=== PATIENT | female | born 1940 | race Caucasian/White ===

== ENCOUNTER 2017-08-17 20:28 | Inpatient (IN) ==
[2017-08-17] MEDS ORDERED: ONDANSETRON 4 MG/2 ML VIAL IV ONE (20:41)
[2017-08-17] MEDS ORDERED: 0.9 % SODIUM CHLORIDE 1,000 ML IV ONE (20:55)
[2017-08-17] MEDS ORDERED: DILTIAZEM 25 MG/5 ML VIAL IV ONE (20:59)
[2017-08-17 21:44] LABS: Basophils # (Auto) 0 K/mcL (0.0-0.3); Basophils % (Auto) 0 % (0.0-2.0); Eosinophils # (Auto) 0 K/mcL (0.0-0.7); Eosinophils % (Auto) 0.2 % (0.0-7.0); Granulocytes % (Auto) 85.9 % (38.0-78.0); Lymphocytes # (Auto) 0.5 K/mcL (1.5-4.8); Lymphocytes % (Auto) 7.6 % (15.5-49.0); Mean Cell Volume 80.9 fL (80.0-100.0); Mean Corpuscular HGB Conc 32.3 g/dL (31.0-36.0); Mean Corpuscular Hemoglobin 26.1 pg (26.0-34.0); Monocytes # (Auto) 0.4 K/mcL (0.1-0.9); Monocytes % (Auto) 6.3 % (1.0-12.0); Platelet Count 282 K/mcL (140-440); RBC 3.16 M/mcL (4.00-5.20); Red Cell Distribution Width 19.1 % (11.5-14.5)
[2017-08-17 21:47] LABS: ALT/SGPT 21 U/l (0-40); Albumin 3.3 gm/dL (3.2-5.2); Alkaline Phosphatase 126 U/L (39-117); Blood Urea Nitrogen 22 mg/dl (8-23)
[2017-08-17] MEDS ORDERED: PHYTONADIONE 5 MG in 0.9 % SODIUM CHLORIDE 50 ML IV ONE (21:52)
[2017-08-17] MEDS ORDERED: PHYTONADIONE 10 MG/ML AMPUL ONE (22:21)
[2017-08-17] MEDS ORDERED: 0.9 % SODIUM CHLORIDE 100 ML IV ONE (22:25)
[2017-08-17] MEDS ORDERED: PANTOPRAZOLE 40 MG VIAL IV ONE (23:00)
--- NOTE | 2017-08-17 23:06 | Emergency Department Note ---
Nausea/Vomiting/Diarrhea HPI - General Chief complaint: Nausea/Vomiting/Diarrhea Stated complaint: nausea,vomiting,diarrhea Time Seen by Provider: 08/17/17 22:48 Source: patient Mode of arrival: wheelchair Limitations: no limitations - History of Present Illness HPI Narrative: Nausea for the last 2 days, decreased by mouth intake, tells me that she vomited some coffee-ground material this morning, she was brought in by a neighbor because she did not feel well. Unable to eat very much today, she felt like she was getting dehydrated she also felt palpitations but denies any chest pain. She felt a little bit short of breath but then her oxygen saturations were normal when she arrived here. No recent cough which is productive for, she denies any ankle swelling she has chronic A. fib but when she arrived here her rate was 140-150. She has diffuse abdominal pain associated with nausea and she had several loose stools today. One of the stool she does describe it as being brown or dark in color. She takes Coumadin for atrial fibrillation which she has had for many years. MD complaint: nausea - Related Data Home Medications Medication Instructions Recorded Confirmed lipase 40,000-protease 1 cap PO TID 02/06/17 07/11/17 136,000-amylase 218,000 unit capsule,delay rel omeprazole 20 mg capsule,delayed 20 mg PO QDAY cap 02/06/17 07/11/17 release warfarin 3 mg tablet 3 mg PO QDAY tab 02/06/17 07/11/17 Previous Rx's Medication Instructions Recorded levothyroxine 75 mcg tablet 75 mcg PO DAILY #90 tab 01/11/16 clobetasol 0.05 % topical ointment 1 applic TOPICAL BID PRN #60 g 05/18/16 furosemide 20 mg tablet 20 mg PO QDAY #30 tab 02/21/17 tramadol 50 mg tablet 50 mg PO Q8H PRN 30 Days #90 tab 04/24/17 hydrocodone 5 mg-acetaminophen 325 1 tab PO Q4HP PRN #12 tab 07/18/17 mg tablet HYDROcodone/APAP 5/325MG [[place] 1 tab PO Q6HP PRN #30 tab 08/03/17 5/325Mg] methocarbamol 500 mg tablet 500 mg PO QDAY PRN #30 tab 08/16/17 Allergies Allergy/AdvReac Type Severity Reaction Status Date / Time Tetracycline Allergy Intermediate Itching Verified 07/11/17 14:55 shellfish derived Allergy Unknown Verified 07/11/17 14:55 Review of Systems All systems ED: reviewed and negative except as stated. Constitutional: Denies: fever, chills Eyes: Reports: as per HPI ENT ED: Denies: throat pain Cardiovascular: Reports: palpitations, dyspnea on exertion Respiratory: Reports: shortness of breath. Denies: cough Gastrointestinal: Reports: abdominal pain, nausea, vomiting, diarrhea, hematochezia Genitourinary: Denies: dysuria Musculoskeletal: Reports: back pain Neurological: Reports: weakness. Denies: headache Past Medical History - Past Medical History Source: old records reviewed, nursing notes reviewed Medical history: Reports: arthritis, atrial fibrillation, COPD, coronary artery disease, hyperlipidemia, liver disease, thyroid disease, other (pancreatitis, low back pain, alcoholic hepatitis, hemorrhoids, DDD, jaw fracture) Psychiatric history: Reports: no psych history Surgical history ED: Reports: cataract, herniorrhaphy, hip replacement, orthopedic, other (Ankle), other (varicose vein stripping, tonsillectomy/ adenoidectomy) Family history: Reports: non-contributory - Social History smoking status: Current every day smoker Alcohol use: Reports: Frequently, Recent Drug use: Reports: none Physical Exam Limitations: no limitations General appearance: alert Head: atraumatic, normocephalic Eye: Present: normal appearance, PERRL, EOMI, scleral icterus, conjunctival injection ENT: normal exam, normal oropharynx, mucous membranes moist, TM's normal bilaterally Neck: Present: normal inspection, full ROM, trachea midline Chest: Present: normal inspection, symmetric chest wall rise. Absent: tenderness Respiratory: Present: normal lung sounds bilaterally. Absent: respiratory distress, wheezes, stridor Cardiovascular: Present: tachycardia, irregular rhythm, normal heart sounds Abdominal: Present: soft, distention, diminished bowel sounds, organomegaly. Absent: tenderness, guarding Rectal: Present: decreased rectal tone, heme (+) stool, black stool Extremities: Present: normal inspection, full ROM. Absent: tenderness Back: Present: normal inspection, full ROM, paraspinal tenderness, spinous process tenderness, vertebral tenderness Neurological: Present: alert, oriented X3, CN II-XII intact. Absent: motor sensory deficit Psychiatric: Present: normal affect Skin: Present: warm, dry, intact, cyanosis, pallor Course Vital Signs Temperature 97.4 F 08/17/17 20:29 Pulse Rate 150 H 08/17/17 20:29 Respiratory Rate 19 08/17/17 20:29 Blood Pressure 111/80 08/17/17 20:29 Pulse Oximetry (%) 95 08/17/17 20:29 Temperature 97.4 F 08/17/17 20:29 Pulse Rate 110 H 08/17/17 22:01 Respiratory Rate 14 08/17/17 22:01 Blood Pressure 99/63 08/17/17 22:01 Pulse Oximetry (%) 95 08/17/17 22:01 Nausea/Vomiting/Diarrhea - [facility] Narrative Medical decision making narrative: impression GI bleed with high INR. Atrial fibrillation with rapid ventricular rate. Dr. Carina pitts as well as Dr. Ko. - Lab Data Result diagrams: 08/17/17 20:48 08/17/17 20:48 Lab Results 08/17/17 08/17/17 08/17/17 Range/Units 20:48 20:48 20:48 WBC 6.9 (4.5-11.0) K/mcL RBC 3.16 L (4.00-5.20) M/mcL Hgb 8.2 L (12.0-15.0) g/dL Hct 25.5 L (36.0-48.0) % MCV 80.9 (80.0-100.0) fL MCH 26.1 (26.0-34.0) pg MCHC 32.3 (31.0-36.0) g/dL RDW 19.1 H (11.5-14.5) % Plt Count 282 (140-440) K/mcL MPV 8.2 (7.4-10.4) fL Gran % 85.9 H (38.0-78.0) % Lymph % (Auto) 7.6 L (15.5-49.0) % [place] % (Auto) 6.3 (1.0-12.0) % Eos % (Auto) 0.2 (0.0-7.0) % Baso % (Auto) 0 (0.0-2.0) % Gran # 5.9 (1.8-8.0) K/mcL Lymph # (Auto) 0.5 L (1.5-4.8) K/mcL [place] # (Auto) 0.4 (0.1-0.9) K/mcL Eos # (Auto) 0 (0.0-0.7) K/mcL Baso # (Auto) 0 (0.0-0.3) K/mcL PT 79.0 H (11.9-14.5) sec INR 9.2 H* (0.9-1.1) Sodium 131 L (133-145) mmol/L Potassium 4.8 (3.3-5.1) mmol/L Chloride 91 L (96-108) mmol/L Carbon Dioxide 17 L (22-30) mmol/L Anion Gap 23.0 H (8-16) BUN 22 (8-23) mg/dl Creatinine 1.3 H (0.6-1.1) mg/dl GFR Calculation 39 Glucose 148 H (70-105) mg/dL Calcium 9.2 (8.6-10.4) mg/dl Total Bilirubin 1.2 H (0.0-1.0) mg/dL AST 66 H (0-37) U/l ALT 21 (0-40) U/l Alkaline Phosphatase 126 H (39-117) U/L Total Creatine Kinase (24-170) IU/L CK-MB (CK-2) (0-2.9) ng/ml Myoglobin (25-58) ng/ml Troponin T (0-0.03) ng/ml Total Protein 6.6 (5.9-8.4) gm/dL Albumin 3.3 (3.2-5.2) gm/dL Globulin 3.3 (2.2-3.7) gm/dL Albumin/Globulin Ratio 1.0 (1.0-2.3) 08/17/17 08/17/17 Range/Units 20:48 20:48 WBC (4.5-11.0) K/mcL RBC (4.00-5.20) M/mcL Hgb (12.0-15.0) g/dL Hct (36.0-48.0) % MCV (80.0-100.0) fL MCH (26.0-34.0) pg MCHC (31.0-36.0) g/dL RDW (11.5-14.5) % Plt Count (140-440) K/mcL MPV (7.4-10.4) fL Gran % (38.0-78.0) % Lymph % (Auto) (15.5-49.0) % [place] % (Auto) (1.0-12.0) % Eos % (Auto) (0.0-7.0) % Baso % (Auto) (0.0-2.0) % Gran # (1.8-8.0) K/mcL Lymph # (Auto) (1.5-4.8) K/mcL [place] # (Auto) (0.1-0.9) K/mcL Eos # (Auto) (0.0-0.7) K/mcL Baso # (Auto) (0.0-0.3) K/mcL PT (11.9-14.5) sec INR (0.9-1.1) Sodium (133-145) mmol/L Potassium (3.3-5.1) mmol/L Chloride (96-108) mmol/L Carbon Dioxide (22-30) mmol/L Anion Gap (8-16) BUN (8-23) mg/dl Creatinine (0.6-1.1) mg/dl GFR Calculation Glucose (70-105) mg/dL Calcium (8.6-10.4) mg/dl Total Bilirubin (0.0-1.0) mg/dL AST (0-37) U/l ALT (0-40) U/l Alkaline Phosphatase (39-117) U/L Total Creatine Kinase 70 (24-170) IU/L CK-MB (CK-2) 3.0 H (0-2.9) ng/ml Myoglobin 54 (25-58) ng/ml Troponin T < 0.01 (0-0.03) ng/ml Total Protein (5.9-8.4) gm/dL Albumin (3.2-5.2) gm/dL Globulin (2.2-3.7) gm/dL Albumin/Globulin Ratio (1.0-2.3) Disposition Pt seen by NURSING ASSOCIATE/PA only: No Clinical Impression: GI bleed, Dehydration Disposition: Xfer As Inpt ([facility]) Condition: Critical Referrals: Rom Cosme MD [Primary Care Provider] -
[2017-08-18] MEDS ORDERED: OCTREOTIDE ACETATE 50 MCG/ML AMPUL IV ONE (00:11)
[2017-08-18] MEDS ORDERED: THIAMINE 100 MG in 0.9 % SODIUM CHLORIDE 50 ML IV SCH (00:11)
[2017-08-18] MEDS ORDERED: OCTREOTIDE ACETATE 500 MCG in 0.9 % SODIUM CHLORIDE 495 ML IV SCH (00:11)
[2017-08-18] MEDS ORDERED: ONDANSETRON 4 MG/2 ML VIAL IV PRN (00:11)
[2017-08-18] MEDS ORDERED: cefTRIAXone 1 GM in DEXTROSE 5% IN WATER 50 ML IV SCH (00:11)
[2017-08-18] MEDS ORDERED: 0.9 % SODIUM CHLORIDE 1,000 ML IV ONE (00:11)
[2017-08-18] MEDS ORDERED: PHYTONADIONE 5 MG in 0.9 % SODIUM CHLORIDE 50 ML IV ONE (00:11)
[2017-08-18] MEDS ORDERED: NALOXONE HCL 0.4 MG/ML VIAL IV PRN (00:11)
[2017-08-18] MEDS ORDERED: OCTREOTIDE ACETATE IV ONE (00:30)
[2017-08-18] MEDS ORDERED: SODIUM CHLORIDE 0.9% IV ONE (00:30)
--- NOTE | 2017-08-18 00:33 | Internal Med History&Physical ---
Medical - H&P: HPI Patient information: Note initiated : 08/18/17 at 12:29 am Service Date, if different from initiated Date: [] Patient: Diane Xie 77 y/o F admitted on 08/18/17 for nausea,vomiting, diarrhea. Chief Complaint: [] History of present illness: Ms. Xie is a 77 year old Female with h/o alcohol abuse, alcoholic cirrhosis , ? h/o UGI in the past, presents to the hospital for not feeling well x 2 days , The patient notes she has been dry heaving x 2-3 days, not able to tolerate po diet well. She notes that today she tried to vomit and the vomit was very dark, black in color, this am she also had black tarry stools. Her neighbor therefore brought her to the hospital for further evaluation and management. The patient has h/o fall recently and has back pain from a wedge fracture, She notes she has dizziness, and dryness of mouth, some shortness of breath and fatigue today, she denies any acute or bright red blood in the stools, no blood in vomitus, she denies any acute abdominal pain. The patient is a heavy alcohol consumer, has multiple EGD in the past, last There are no esophageal varices. There is a large abnormality in the antrum with edema, likely an ulcer. This was biopsied. The pyloric ring and duodenum were normal. The patient also has had 3 EGD in the past 2 -3 yrs showing gastritis, scaztki ring as well as angiodysplasia of stomach. No varices seen on the last EGD, however MRI abdomen done this year shows some varices She has had a colonoscopy showing hemorrhoids and hyperplastic polyp in 2014. She follows with Dr Queen/ Nilsa Hair for her cirrhosis, chr pancreatitis. The patient has h/o Afib, on coumadin followed by Dr Weaver In the ER the patient was tachycardic, with afib in rvr with HR of 150, the patient had Hb of 8.2, Na 131, creat 1.2, BUN 22 (baseline bun is 7-8), INR is 9 Patient is being admitted to the PCU for further management. Dr Ko has been called by ER All systems: reviewed and no additional remarkable complaints except as stated ( as per HPI) Medical - H&P: PMH Medical history: Medical History (Last Updated 07/05/17 @ 11:18 by Lynnette Nelson CMA) Contusion of right hip region (Acute) Fall (Acute) Compression fracture (Acute) GI bleed (Acute) Dehydration (Acute) Contusion (Acute) Osteoarthritis (Acute) Shoulder sprain (Acute) Chronic lumbar radiculopathy (Chronic) Cervical paraspinal muscle spasm (Acute) Anticoagulated on Coumadin (Chronic) Muscle cramps (Acute) Hypokalemia (Acute) Hypomagnesemia (Acute) Varicose veins of lower extremity (Chronic 12/09/14) History of tobacco use (Chronic) Pancreatitis (Chronic) Osteoporosis (Chronic) Osteoarthritis of spine (Chronic) Disturbance of skin sensation (Chronic 11/05/14) Low back pain (Chronic 11/05/14) Hypothyroidism, acquired (Chronic) Hyperlipidemia (Chronic) Hepatitis, alcoholic (Chronic) Hemorrhoids (Chronic 11/05/14) Closed fracture of multiple sites of mandible (Chronic) Other specified disorders of eye and adnexa (Chronic) Esophagus disorder (Chronic) Degenerative disc disease (Chronic) Coronary artery disease (Chronic) Personal history of colonic polyps (Chronic) Liver cirrhosis, alcoholic (Chronic) COPD (chronic obstructive pulmonary disease) (Chronic) Cerebrovascular accident (CVA) (Chronic) Atrial fibrillation (Chronic) Fracture of ankle, closed (Chronic) Alcohol dependence in remission (Chronic) A-fib (Inactive) Surgical history: Past Surgical History History of varicose vein stripping (Chronic) History of total hip arthroplasty (Chronic 12/03/13) History of tonsillectomy (Chronic) History of oral surgery (Chronic) History of hernia repair (Chronic) History of cataract surgery (Chronic) History of adenoidectomy (Chronic) Pertinent family history: Family History Father Atherosclerosis of coronary artery, Onset Age: 69 Mother Dementia Unknown Family history of malignant neoplasm Unknown Essential hypertension Medical - H&P: Meds Home Medications Medication Instructions Recorded Confirmed Type levothyroxine 75 mcg tablet 75 mcg PO DAILY #90 tab 01/11/16 07/11/17 Rx clobetasol 0.05 % topical ointment 1 applic TOPICAL BID PRN #60 g 05/18/1607/11 Rx lipase 40,000-protease 1 cap PO TID 02/06/17 07/11/17 History 136,000-amylase 218,000 unit capsule,delay rel omeprazole 20 mg capsule,delayed 20 mg PO QDAY cap 02/06/17 07/11/17 History release warfarin 3 mg tablet 3 mg PO QDAY tab 02/06/17 07/11/17 History furosemide 20 mg tablet 20 mg PO QDAY #30 tab 02/21/17 07/11/17 Rx tramadol 50 mg tablet 50 mg PO Q8H PRN 30 Days #90 tab 04/24/17 07/11/17 Rx hydrocodone 5 mg-acetaminophen 325 1 tab PO Q4HP PRN #12 tab 07/18/17 Rx mg tablet HYDROcodone/APAP 5/325MG [[place] 1 tab PO Q6HP PRN #30 tab 08/03/17 Rx 5/325Mg] methocarbamol 500 mg tablet 500 mg PO QDAY PRN #30 tab 08/16/17 Rx Allergies Allergy/AdvReac Type Severity Reaction Status Date / Time Tetracycline Allergy Intermediate Itching Verified 07/11/17 14:55 shellfish derived Allergy Unknown Verified 07/11/17 14:55 Medical - H&P: Exam - Constitutional Vitals: Temp Pulse Resp BP Pulse Ox 97.4 F 138 H 14 109/58 93 08/17/17 20:29 08/18/17 00:01 08/18/17 00:01 08/18/17 00:01 08/18/17 00:01 Exam: GENERAL: The patient is a well-developed, well-nourished in no apparent distress. Is alert and oriented x3. VITAL SIGNS: Reviewed and as noted elsewhere. HEENT: Head is normocephalic and atraumatic. Extraocular muscles are intact. Pupils are equal, round, and reactive to light. Nares appeared normal. Mouth appears any without lesions. Mucous membranes are dry. NECK: Normal to inspection, Supple, No lymphadenopathy or thyromegaly. LUNGS: Air entry equal on both sides, no wheezing, crackles or rhonchi noted. No accessory muscles of respiration HEART: tachycardic rate and rhythm irregular , S1 and S2 heard, no Gallop, S3 or Rub Noted, No Gross murmur heard. ABDOMEN: Soft, nontender, and nondistended. Positive bowel sounds. No hepatosplenomegaly was noted. EXTREMITIES: No cyanosis, clubbing, rash, lesions or edema. NEUROLOGIC: Cranial nerves II through XII are grossly intact. Motor and Sensory System Grossly Intact, no astrexis, PSYCHIATRIC: Normal affect, Normal Mood. Appropriate Behavior. SKIN: No ulceration or wounds noted, No jaundice, No rash noted. Medical - H&P: Reslt - Labs CBC & Chem 7: 08/17/17 20:48 08/17/17 20:48 Labs: Short CBC 08/17/17 Range/Units 20:48 WBC 6.9 (4.5-11.0) K/mcL Hgb 8.2 L (12.0-15.0) g/dL Hct 25.5 L (36.0-48.0) % Plt Count 282 (140-440) K/mcL BMP 08/17/17 20:48 Sodium 131 L Potassium 4.8 Chloride 91 L Carbon Dioxide 17 L BUN 22 Creatinine 1.3 H Glucose 148 H Calcium 9.2 Cardiac Enzymes 08/17/17 08/17/17 Range/Units 20:48 20:48 Total Creatine Kinase 70 (24-170) IU/L CK-MB (CK-2) 3.0 H (0-2.9) ng/ml Troponin T < 0.01 (0-0.03) ng/ml Liver Function 08/17/17 Range/Units 20:48 Total Bilirubin 1.2 H (0.0-1.0) mg/dL AST 66 H (0-37) U/l ALT 21 (0-40) U/l Alkaline Phosphatase 126 H (39-117) U/L Albumin 3.3 (3.2-5.2) gm/dL - EKG Data -: EKG Reviewed by Myself (afib with RVR, low voltage, non spec ST changes in ant lateral leads. ) Medical - H&P: A/P - Narrative A/P Narrative: A/P Acute GI bleed: patient has cassie, and black/ dark vomitus, BUN is elevated from baseline to 22, the patient is tachcardic from afib with RVR, but has afib at baseline, bp is stable, though dropped after IV cardizem in ER, GI has been consulted. IV PPI 40mg bid, start on octreotide drip, 2 units prbc and 2 units ffp, 5mg iv vit K given in the Er. Hypercoagulation: on coumadin for afib, INR elevated in patient with GIB, INR 9 , IV vit k given in ER, 2 units ffp planned to rapidly reverse anticoagulation. Anemia: patient hb is 8.2 on presentation, which is lower than her previous labs , but she has had varied hb over the last 2 years. Transfuse given pt is tachcyardic, and clinical h/o suggestive of GIB, monitor closely. Afib with RVR: For now hold off on rate control meds, once hb is improved and patient is volume resusitated can use IV metoprolol prn if HR remains elevated. COPD: still smokes, duonebs q6 for now, no wheezing on exam chr pancreatitis: will need digestive enzymes once able to tolerate PO, resume home meds Cirrhosis: alcoholic, ? hepatic mass? repeat mri in 6 months planned, patient still drinks, MELD score cannot be calculated as she is on coumadin. CAD/ Hypothyroidism/ CVA? : Resume home meds Alcoholism: CIWA protocol while here, IV thiamine for now. DVT SCD Full code NPO diet. Ok for ice chips Social History - Tobacco smoking status: Current every day smoker - Tobacco Type tobacco type: e-cigarettes, cigarettes - Cigarette Details per day: 10 - Alcohol alcohol intake frequency: a few times a week - Substance use substance use type: does not use
[2017-08-18] MEDS ORDERED: LORazepam 2 MG/ML VIAL IV PRN (00:49)
[2017-08-18] MEDS ORDERED: METOPROLOL TARTRATE 5 MG/5 ML VIAL IV PRN (00:50)
[2017-08-18] MEDS: IPRATROPIUM/ALBUTEROL 3 ML AMPUL.NEB NEB SCH ×4 (01:03→19:26)
[2017-08-18] MEDS ORDERED: IPRATROPIUM/ALBUTEROL 3 ML AMPUL.NEB NEB ONE (01:10)
[2017-08-18] MEDS ORDERED: cefTRIAXone 1 GM VIAL ONE (01:17)
[2017-08-18] MEDS ORDERED: 0.9 % SODIUM CHLORIDE 100 ML IV ONE (01:17)
[2017-08-18] MEDS ORDERED: METOPROLOL TARTRATE 5 MG/5 ML VIAL IV ONE (02:02)
[2017-08-18] MEDS: HYDROmorphone 2 MG/ML SYRINGE IV PRN ×2 (02:03→22:39)
[2017-08-18] MEDS ORDERED: HYDROmorphone 2 MG/ML SYRINGE ONE (02:09)
[2017-08-18] MEDS ORDERED: METHOCARBAMOL 1,000 MG/10 ML VIAL ONE (03:44)
--- NOTE | 2017-08-18 06:14 | XRay Report ---
INDICATION: Atrial fibrillation TECHNIQUE: AP chest x-ray,portable COMPARISON: Multiple previous examinations. Most recent comparison study is dated 10/12/2016 FINDINGS:Mild left lower lobe density consistent with atelectasis or small focal infiltrate. Lungs are otherwise negative Mild cardiomegaly. Pulmonary vascularity is normal. No pulmonary congestion. No pulmonary edema. IMPRESSION: 1. Marked cardiomegaly. No congestive heart failure. 2. Mild left retrocardiac density. Interpreted and Authenticated by: Abhijeet Frost 08/18/17
[2017-08-18] MEDS: 0.9 % SODIUM CHLORIDE 10 ML SYRINGE IV SCH ×3 (07:27→22:39)
[2017-08-18] MEDS: PANTOPRAZOLE 40 MG VIAL IV SCH ×2 (07:27→17:28)
[2017-08-18] MEDS: METHOCARBAMOL 1,000 MG/10 ML VIAL IV PRN ×2 (08:18→19:21)
[2017-08-18] MEDS ORDERED: DIGOXIN 500 MCG/2 ML AMPUL IV ONE (08:28)
[2017-08-18] MEDS ORDERED: KETAMINE 10 MG/ML ML IV PRN (08:37)
[2017-08-18] MEDS ORDERED: PROPOFOL 200 MG/20 ML VIAL IV SCH (08:45)
[2017-08-18] MEDS ORDERED: MIDAZOLAM 2 MG/2 ML VIAL IV SCH (08:45)
[2017-08-18] MEDS ORDERED: MIDAZOLAM 2 MG/2 ML VIAL ONE (08:55)
[2017-08-18] MEDS ORDERED: PROPOFOL 20 ML IV ONE (08:55)
[2017-08-18 09:15] LABS: ALT/SGPT 17 U/l (0-40); Albumin/Globulin Ratio 1.2 (1.0-2.3); Alkaline Phosphatase 90 U/L (39-117); Bilirubin,Direct 0.5 mg/dL (0.0-0.3); Blood Urea Nitrogen 23 mg/dl (8-23); Gamma Glutamyl Transpeptidase 71 U/L (5-36); Magnesium 1.6 mg/dL (1.6-2.5); Uric Acid 3.2 mg/dL (2.5-8.0)
[2017-08-18 09:16] LABS: Basophils # (Auto) 0 K/mcL (0.0-0.3); Basophils % (Auto) 0.4 % (0.0-2.0); Eosinophils # (Auto) 0 K/mcL (0.0-0.7); Eosinophils % (Auto) 0.4 % (0.0-7.0); Granulocytes % (Auto) 63.8 % (38.0-78.0); Lymphocytes # (Auto) 1.5 K/mcL (1.5-4.8); Lymphocytes % (Auto) 25.6 % (15.5-49.0); Mean Cell Volume 83.9 fL (80.0-100.0); Mean Corpuscular HGB Conc 33.1 g/dL (31.0-36.0); Mean Corpuscular Hemoglobin 27.8 pg (26.0-34.0); Monocytes # (Auto) 0.6 K/mcL (0.1-0.9); Monocytes % (Auto) 9.8 % (1.0-12.0); Platelet Count 176 K/mcL (140-440); RBC 3.08 M/mcL (4.00-5.20)
--- NOTE | 2017-08-18 09:50 | Internal Med Progress Note ---
Medical - PN: Subj Patient information: Note initiated : 08/18/17 at 9:43 am Service Date, if different from initiated Date: [] Patient: Diane Xie 77 y/o F admitted on 08/18/17 for nausea,vomiting, diarrhea. Chief Complaint: [] Interval history: Ms. Xie is a 77 year old Female with h/o alcohol abuse, alcoholic cirrhosis , ? h/o UGI in the past, presents to the hospital for not feeling well x 2 days , The patient notes she has been dry heaving x 2-3 days, not able to tolerate po diet well. She notes that today she tried to vomit and the vomit was very dark, black in color, this am she also had black tarry stools. Her neighbor therefore brought her to the hospital for further evaluation and management. The patient has h/o fall recently and has back pain from a wedge fracture, She notes she has dizziness, and dryness of mouth, some shortness of breath and fatigue today, she denies any acute or bright red blood in the stools, no blood in vomitus, she denies any acute abdominal pain. The patient is a heavy alcohol consumer, has multiple EGD in the past, last There are no esophageal varices. There is a large abnormality in the antrum with edema, likely an ulcer. This was biopsied. The pyloric ring and duodenum were normal. The patient also has had 3 EGD in the past 2 -3 yrs showing gastritis, scaztki ring as well as angiodysplasia of stomach. No varices seen on the last EGD, however MRI abdomen done this year shows some varices She has had a colonoscopy showing hemorrhoids and hyperplastic polyp in 2014. She follows with Dr Queen/ Nilsa Hair for her cirrhosis, chr pancreatitis. The patient has h/o Afib, on coumadin followed by Dr Weaver In the ER the patient was tachycardic, with afib in rvr with HR of 150, the patient had Hb of 8.2, Na 131, creat 1.2, BUN 22 (baseline bun is 7-8), INR is 9 Patient is being admitted to the PCU for further management. Dr Ko has been called by ER Aug 18 Patient seen examined, no acute overnigh issues, patient has remained tachycardic, in aflutter with rvr on monitor, Hb this AM is 8.6, after 2 units of prbc, pt is to get EGD today. patient has some cramps on the right leg, which are a chr issue for her Pertinent ROS: Denies headache, dizziness Denies chest pain, palpitations Denies cough or shortness of breath Denies abdominal pain, nausea or vomiting. - Constitutional Vitals: Vital Signs Temp Pulse Resp BP Pulse Ox 98.4 F 105 H 16 123/80 93 08/18/17 09:33 08/18/17 09:33 08/18/17 09:33 08/18/17 09:33 08/18/17 09:33 Period Temp Pulse Resp BP Sys/Gomez Pulse Ox Last 24 Hr 97.4 F-98.7 F 86-150 8-26 80-125/43-90 2-100 Intake and Output 08/17/17 08/18/17 08/18/17 21:59 05:59 13:59 Intake Total 155 / 155 3248 / 3248 Output Total Balance 155 / 155 3247 / 3247 Weight 115 lb 115 lb 14.4 oz Intake & Output: Intake & Output 08/17/17 08/18/17 08/18/17 21:59 05:59 13:59 Intake Total 155 / 155 3248 / 3248 Output Total Balance 155 / 155 3247 / 3247 Weight 115 lb 115 lb 14.4 oz Intake: IV 155 / 155 1946 / 1946 Sodium Chloride 0.9% 1,000 ml @ 155 / 155 1845 / 1845 Wide Open IV [facility] ONE Rx#: [id number] Sodium Chloride 0.9% 100 ml As 50 / 50 IV .STK-MED ONE Rx#:[id number] Vitamin B1 100 mg In Sodium 51 / 51 Chloride 0.9% 50 ml @ 50 mls/hr IV DAILY [facility] Rx#:[id number] Blood Product 1302 / 1302 Output: # of times incontinent of urine Exam: Constitutional; Afebrile, cooperative, alert, not in distress. Eyes- No icterus, No periorbital swelling Ears- Ext ear normal, hearing normal to conversation. Neck- Midline trachea, supple Respiratory system: Air Entry equal on both sides, No crackles or wheezing, no rhonchi. CVS- Rate tachycardic rhythm irregular, S1,S2 heard, no gallop, no rub. Abdomen- Soft nontender abdomen, no organomegaly, no tenderness, no guarding or rigidity, [employer]LECT[employer] COMPUTER [employer]CH[employer]IC- AOOx3, moving all extremities, no gross focal deficit noted. , Medical - PN: Obj Da - Labs CBC & Chem 7: 08/18/17 06:28 08/18/17 06:28 Labs: Abnormal Lab Results 08/18/17 08/18/17 08/18/17 06:28 06:28 06:28 RBC 3.08 L Hgb 8.6 L Hct 25.8 L RDW 19.0 H Gran % Lymph % (Auto) Lymph # (Auto) PT 22.9 H INR 2.0 H Sodium Chloride Carbon Dioxide 20 L Anion Gap Creatinine Glucose 110 H Calcium 8.0 L Total Bilirubin 1.4 H Direct Bilirubin 0.5 H GGT 71 H AST 58 H Alkaline Phosphatase Lactate Dehydrogenase 310 H CK-MB (CK-2) Total Protein 5.6 L Albumin 3.0 L 08/17/17 08/17/17 08/17/17 20:48 20:48 20:48 RBC Hgb Hct RDW Gran % Lymph % (Auto) Lymph # (Auto) PT 79.0 H INR 9.2 H* Sodium 131 L Chloride 91 L Carbon Dioxide 17 L Anion Gap 23.0 H Creatinine 1.3 H Glucose 148 H Calcium Total Bilirubin 1.2 H Direct Bilirubin GGT AST 66 H Alkaline Phosphatase 126 H Lactate Dehydrogenase CK-MB (CK-2) 3.0 H Total Protein Albumin 08/17/17 20:48 RBC 3.16 L Hgb 8.2 L Hct 25.5 L RDW 19.1 H Gran % 85.9 H Lymph % (Auto) 7.6 L Lymph # (Auto) 0.5 L PT INR Sodium Chloride Carbon Dioxide Anion Gap Creatinine Glucose Calcium Total Bilirubin Direct Bilirubin GGT AST Alkaline Phosphatase Lactate Dehydrogenase CK-MB (CK-2) Total Protein Albumin Meds: Medications Albuterol/Ipratropium (Duoneb) 3 ml NEB Q6HRT [facility] Last Admin: 08/18/17 07:27 Dose: 3 ml Ceftriaxone Sodium (Rocephin) 1 gm IV Q24H [facility] Diagnostic Test (Pha) (Accu-Chek) 1 each FS ONCE [facility] Stop: 08/18/17 16:37 Folic Acid (Folic Acid) 1 mg PO DAILY [facility] Hydromorphone HCl (Dilaudid) 0.5 mg IV Q2HP PRN PRN Reason: PAIN LEVEL > 6 Last Admin: 08/18/17 02:03 Dose: 0.5 mg Octreotide Acetate 500 mcg/ (Sodium Chloride) 500 mls @ 25 mls/hr IV Q20H [facility] PRN Reason: 25 MCG/HR Last Admin: 08/18/17 00:59 Dose: 25 mcg/hr, 25 mls/hr Thiamine HCl 100 mg/ Sodium (Chloride) 51 mls @ 50 mls/hr IV Q24H [facility] Stop: 08/19/17 16:02 Potassium Cl/Dextrose/Lact Ringer's (Dextrose 5%-Lr W/20meq Kcl) 1,000 mls @ 100 mls/hr IV .Q10H [facility] Stop: 08/19/17 14:29 Iron Carb/Multivit/Mail Caller/Folic Acid (Multivitamin W/Minerals) 1 tab PO DAILY [facility] Ketamine HCl (Ketalar) 50 mg IV ONCE PRN PRN Reason: Sedation Stop: 08/18/17 16:37 Lorazepam (Ativan) 0 mg IV Q4HP PRN; Protocol PRN Reason: Alcohol Withdrawal Methocarbamol (Robaxin) 750 mg IV Q6HP PRN PRN Reason: Muscle Spasm Last Admin: 08/18/17 08:18 Dose: 750 mg Metoprolol Tartrate (Lopressor) 5 mg IV Q4HP PRN PRN Reason: Tachyarrhythmias Last Admin: 08/18/17 02:04 Dose: 5 mg Midazolam HCl (Versed) 0 mg IV ONCE [facility] Stop: 08/18/17 16:37 Naloxone HCl (Narcan) 0.1 mg IV Q2MIN PRN PRN Reason: Opiate Reversal Ondansetron HCl (Zofran) 4 mg IV Q4-6HP PRN PRN Reason: Nausea And Vomiting Pantoprazole Sodium (Protonix) 40 mg IV BIDAC [facility] Last Admin: 08/18/17 07:27 Dose: 40 mg Pneumococcal Polyvalent Vaccine (Pneumovax 23) 0.5 ml IM .ONCE ONE Stop: 08/19/17 10:01 Propofol (Diprivan) 0 mg IV ONCE [facility] Stop: 08/18/17 16:37 Sodium Chloride (Saline Flush) 10 ml IV Q8 [facility] Last Admin: 08/18/17 07:27 Dose: 10 ml Medical - PN: A/P - Time Spent With Patient Total time spent is greater than 50% in coordination of care (as documented) at patient's floor/unit and/or counseling patient: - Narrative A/P Narrative: A/P Acute GI bleed: Plan for EGD today, on IV ppi and IV octreotide, Await EGD by GI , Acute blood loss anemia: Transfuse as needed to keep Hb > 7.0- 8.0 and maintain hemodynamic stability. Hypercoagulation: on Coumadin for afib, INR this AM was 2.0, has received IV vit K anticipate reversal quickly, will decide additional ffp based on results of the EGD. Afib with RVR: Fluid resuscitation, IV metoprolol as needed, BP was on the lower end this AM, I digoxin given. monitor. COPD: still smokes, duonebs q6 for now, no wheezing on exam chr pancreatitis: will need digestive enzymes once able to tolerate PO, resume home meds Cirrhosis: alcoholic, ? hepatic mass? repeat mri in 6 months planned, patient still drinks, MELD score cannot be calculated as she is on coumadin. CAD/ Hypothyroidism/ CVA? : Resume home meds Alcoholism: CIWA protocol while here, IV thiamine for now. PAIGE : Creat improved with IVFluids, monitor DVT SCD Full code NPO diet. Ok for ice chips Medical - PN: Qual - VTE Deep Vein Thrombosis/Pulmonary Embolism Present on Admission: No
[2017-08-18] MEDS: DEXTROSE 5%-LR W/20MEQ KCL 1,000 ML IV SCH ×2 (10:49→19:47)
[2017-08-18 12:08] LABS: Basophils # (Auto) 0 K/mcL (0.0-0.3); Basophils % (Auto) 0.3 % (0.0-2.0); Eosinophils # (Auto) 0 K/mcL (0.0-0.7); Eosinophils % (Auto) 0.7 % (0.0-7.0); Granulocytes % (Auto) 62.7 % (38.0-78.0); Lymphocytes # (Auto) 1.4 K/mcL (1.5-4.8); Lymphocytes % (Auto) 26.1 % (15.5-49.0); Mean Cell Volume 84.5 fL (80.0-100.0); Mean Corpuscular HGB Conc 32.9 g/dL (31.0-36.0); Mean Corpuscular Hemoglobin 27.8 pg (26.0-34.0); Monocytes # (Auto) 0.6 K/mcL (0.1-0.9); Monocytes % (Auto) 10.2 % (1.0-12.0); Platelet Count 181 K/mcL (140-440); RBC 3.22 M/mcL (4.00-5.20); Red Cell Distribution Width 18.4 % (11.5-14.5)
[2017-08-18] MEDS: THIAMINE 100 MG in 0.9 % SODIUM CHLORIDE 50 ML IV SCH (15:00)
[2017-08-18] MEDS: FOLIC ACID 1 MG TABLET PO SCH (16:08)
[2017-08-18] MEDS: MULTIVIT,THER IRON,CA,FA & MIN 1 TABLET PO SCH (16:08)
[2017-08-18] MEDS: cefTRIAXone 1 GM VIAL IV SCH (16:16)
[2017-08-19] MEDS: IPRATROPIUM/ALBUTEROL 3 ML AMPUL.NEB NEB SCH ×4 (01:05→19:27)
[2017-08-19] MEDS: METHOCARBAMOL 1,000 MG/10 ML VIAL IV PRN ×2 (02:23→09:54)
[2017-08-19 05:23] LABS: ALT/SGPT 16 U/l (0-40); Albumin/Globulin Ratio 1.1 (1.0-2.3); Alkaline Phosphatase 100 U/L (39-117); Bilirubin,Direct 0.5 mg/dL (0.0-0.3); Blood Urea Nitrogen 18 mg/dl (8-23); Gamma Glutamyl Transpeptidase 70 U/L (5-36); Magnesium 1.5 mg/dL (1.6-2.5); Uric Acid 3.5 mg/dL (2.5-8.0)
[2017-08-19 05:32] LABS: Basophils # (Auto) 0 K/mcL (0.0-0.3); Basophils % (Auto) 0.2 % (0.0-2.0); Eosinophils # (Auto) 0.1 K/mcL (0.0-0.7); Granulocytes % (Auto) 65.3 % (38.0-78.0); Lymphocytes # (Auto) 1.6 K/mcL (1.5-4.8); Lymphocytes % (Auto) 24.3 % (15.5-49.0); Mean Cell Volume 85.4 fL (80.0-100.0); Mean Corpuscular HGB Conc 32.4 g/dL (31.0-36.0); Mean Corpuscular Hemoglobin 27.7 pg (26.0-34.0); Monocytes # (Auto) 0.6 K/mcL (0.1-0.9); Monocytes % (Auto) 9.2 % (1.0-12.0); Platelet Count 177 K/mcL (140-440); RBC 3.23 M/mcL (4.00-5.20); Red Cell Distribution Width 18.7 % (11.5-14.5)
[2017-08-19] MEDS: 0.9 % SODIUM CHLORIDE 10 ML SYRINGE IV SCH ×3 (06:00→22:44)
[2017-08-19] MEDS: DEXTROSE 5%-LR W/20MEQ KCL 1,000 ML IV SCH (07:17)
[2017-08-19] MEDS: PANTOPRAZOLE 40 MG VIAL IV SCH ×2 (07:17→16:56)
[2017-08-19] MEDS ORDERED: MAGNESIUM SULFATE 32.48 MEQ in DEXTROSE 5% IN WATER 100 ML IV ONE (07:19)
[2017-08-19] MEDS ORDERED: DIGOXIN 500 MCG/2 ML AMPUL IV ONE (07:21)
--- NOTE | 2017-08-19 08:36 | XRay Report ---
INDICATION: Hypoxia. Chest pain. TECHNIQUE: PA and lateral upright chest x-ray COMPARISON: Multiple previous chest x-rays. Most recent studies are dated 08/17/2017, 10/12/2016, 08/28/2013 FINDINGS:Bilateral pulmonary parenchymal infiltrates. There are perihilar infiltrates as well as bilateral lower lobe and right middle lobe infiltrates. There are bilateral pleural effusions. Pulmonary vascularity is more prominent than on previous examination. Findings may all be secondary to congestive heart failure and pulmonary edema. Pneumonia is possible. Clinical correlation is necessary. Follow-up radiographs are also recommended. IMPRESSION: 1. Increased bilateral infiltrates and pleural effusions 2. Findings are probably related to congestive heart failure although pneumonia is possible. Interpreted and Authenticated by: Abhijeet Frost 08/19/17
[2017-08-19] MEDS: FOLIC ACID 1 MG TABLET PO SCH (08:41)
[2017-08-19] MEDS: MULTIVIT,THER IRON,CA,FA & MIN 1 TABLET PO SCH (08:41)
[2017-08-19] MEDS: THIAMINE 100 MG in 0.9 % SODIUM CHLORIDE 50 ML IV SCH (08:42)
[2017-08-19] MEDS ORDERED: METOPROLOL TARTRATE 25 MG TABLET PO SCH (09:00)
[2017-08-19] MEDS ORDERED: FUROSEMIDE 20 MG/2 ML VIAL IV ONE ×3 (09:13→19:57)
--- NOTE | 2017-08-19 09:57 | Internal Med Progress Note ---
Medical - PN: Subj Patient information: Note initiated : 08/19/17 at 9:55 am Service Date, if different from initiated Date: [] Patient: Diane Xie 77 y/o F admitted on 08/18/17 for nausea,vomiting, diarrhea. Chief Complaint: [] pt presented with upper GI bleed. today she denies any further vomiting since the EGD but has still passed melenic stool. No abd pain. Tolerating full liquid diet; not excited about advancing diet but will try solids later today. Actually main c/o this a.m. is back pain; she fell and sustained compression fracture of spine a couple of weeks ago. Interval history: as above, still has melena during night but no vomiting. Nausea marginally better today. Hgb stable overnight. - Constitutional Vitals: Vital Signs Temp Pulse Resp BP Pulse Ox 98.3 F 132 H 20 142/85 98 08/19/17 04:00 08/19/17 07:21 08/19/17 07:21 08/19/17 05:50 08/19/17 07:21 Period Temp Pulse Resp BP Sys/Gomez Pulse Ox Last 24 Hr 97.9 F-98.6 F 80-132 10-24 111-142/68-123 90-98 Intake and Output 08/18/17 08/19/17 08/19/17 21:59 05:59 13:59 Intake Total 1068 / 1068 1150 / 1150 Output Total 600 / 600 300 / 300 Balance 468 / 468 850 / 850 Weight 115 lb Intake & Output: Intake & Output 08/18/17 08/19/17 08/19/17 21:59 05:59 13:59 Intake Total 1068 / 1068 1150 / 1150 Output Total 600 / 600 300 / 300 Balance 468 / 468 850 / 850 Weight 115 lb Intake: IV 948 / 948 1000 / 1000 Dextrose 5%-Lr W/20Meq KCl 1, 897 / 897 1000 / 1000 000 ml @ 100 mls/hr IV .Q10H [facility] Rx#:[id number] Vitamin B1 100 mg In Sodium 51 / 51 Chloride 0.9% 50 ml @ 50 mls/hr IV Q24H [facility] Rx#:[id number] Oral 120 / 120 150 / 150 Output: Void Amount 350 / 350 300 / 300 Urine/Stool Mix 250 / 250 Other: Meal Dinner Percent of Meal Consumed 50% # of times incontinent of 1 Bowels General appearance: cooperative, no acute distress - Eye Eye exam: Absent: scleral icterus - GI/Abdominal GI/Abdominal exam: Present: soft. Absent: distended, tenderness Medical - PN: Obj Da - Labs CBC & Chem 7: 08/19/17 03:54 08/19/17 03:54 Labs: Abnormal Lab Results 08/19/17 08/19/17 08/19/17 03:54 03:54 03:54 RBC 3.23 L Hgb 8.9 L Hct 27.6 L RDW 18.7 H Gran % Lymph % (Auto) Lymph # (Auto) PT 19.6 H INR 1.6 H Sodium Chloride Carbon Dioxide Anion Gap Creatinine Glucose 126 H Calcium 8.2 L Magnesium 1.5 L Total Bilirubin 1.1 H Direct Bilirubin 0.5 H GGT 70 H AST 53 H Alkaline Phosphatase Lactate Dehydrogenase 278 H CK-MB (CK-2) Total Protein 5.7 L Albumin 3.0 L 08/18/17 08/18/17 08/18/17 18:34 11:18 06:28 RBC 3.22 L Hgb 8.8 L 8.9 L Hct 27.0 L 27.2 L RDW 18.4 H Gran % Lymph % (Auto) Lymph # (Auto) 1.4 L PT INR Sodium Chloride Carbon Dioxide 20 L Anion Gap Creatinine Glucose 110 H Calcium 8.0 L Magnesium Total Bilirubin 1.4 H Direct Bilirubin 0.5 H GGT 71 H AST 58 H Alkaline Phosphatase Lactate Dehydrogenase 310 H CK-MB (CK-2) Total Protein 5.6 L Albumin 3.0 L 08/18/17 08/18/17 08/17/17 06:28 06:28 20:48 RBC 3.08 L Hgb 8.6 L Hct 25.8 L RDW 19.0 H Gran % Lymph % (Auto) Lymph # (Auto) PT 22.9 H INR 2.0 H Sodium Chloride Carbon Dioxide Anion Gap Creatinine Glucose Calcium Magnesium Total Bilirubin Direct Bilirubin GGT AST Alkaline Phosphatase Lactate Dehydrogenase CK-MB (CK-2) 3.0 H Total Protein Albumin 08/17/17 08/17/17 08/17/17 20:48 20:48 20:48 RBC 3.16 L Hgb 8.2 L Hct 25.5 L RDW 19.1 H Gran % 85.9 H Lymph % (Auto) 7.6 L Lymph # (Auto) 0.5 L PT 79.0 H INR 9.2 H* Sodium 131 L Chloride 91 L Carbon Dioxide 17 L Anion Gap 23.0 H Creatinine 1.3 H Glucose 148 H Calcium Magnesium Total Bilirubin 1.2 H Direct Bilirubin GGT AST 66 H Alkaline Phosphatase 126 H Lactate Dehydrogenase CK-MB (CK-2) Total Protein Albumin Meds: Medications Albuterol/Ipratropium (Duoneb) 3 ml NEB Q6HRT [facility] Last Admin: 08/19/17 01:05 Dose: 3 ml Ceftriaxone Sodium (Rocephin) 1 gm IV Q24H [facility] Last Admin: 08/18/17 16:16 Dose: 1 gm Folic Acid (Folic Acid) 1 mg PO DAILY [facility] Last Admin: 08/19/17 08:41 Dose: 1 mg Hydromorphone HCl (Dilaudid) 0.5 mg IV Q2HP PRN PRN Reason: PAIN LEVEL > 6 Last Admin: 08/18/17 22:39 Dose: 0.5 mg Thiamine HCl 100 mg/ Sodium (Chloride) 51 mls @ 50 mls/hr IV Q24H [facility] Stop: 08/19/17 16:02 Last Admin: 08/19/17 08:42 Dose: 50 mls/hr Iron Carb/Multivit/Advertising Project Manager/Folic Acid (Multivitamin W/Minerals) 1 tab PO DAILY [facility] Last Admin: 08/19/17 08:41 Dose: 1 tab Lorazepam (Ativan) 0 mg IV Q4HP PRN; Protocol PRN Reason: Alcohol Withdrawal Methocarbamol (Robaxin) 750 mg IV Q6HP PRN PRN Reason: Muscle Spasm Last Admin: 08/19/17 02:23 Dose: 750 mg Metoprolol Tartrate (Lopressor) 5 mg IV Q4HP PRN PRN Reason: Tachyarrhythmias Last Admin: 08/18/17 02:04 Dose: 5 mg Metoprolol Tartrate (Lopressor) 25 mg PO BID [facility] Last Admin: 08/19/17 08:41 Dose: 25 mg Naloxone HCl (Narcan) 0.1 mg IV Q2MIN PRN PRN Reason: Opiate Reversal Ondansetron HCl (Zofran) 4 mg IV Q4-6HP PRN PRN Reason: Nausea And Vomiting Pantoprazole Sodium (Protonix) 40 mg IV BIDAC [facility] Last Admin: 08/19/17 07:17 Dose: 40 mg Pneumococcal Polyvalent Vaccine (Pneumovax 23) 0.5 ml IM .ONCE [facility] Stop: 08/19/17 10:01 Sodium Chloride (Saline Flush) 10 ml IV Q8 [facility] Last Admin: 08/19/17 06:00 Dose: 10 ml Medical - PN: A/P - Time Spent With Patient Total time spent is greater than 50% in coordination of care (as documented) at patient's floor/unit and/or counseling patient: (1) GI bleed Status: Acute Current Visit: Yes - Narrative A/P Narrative: EGD findings showed diffuse bleeding from antrum but no active or profuse bleeding . Will try to advance diet as of lunch today. Important for pt to abstain from EtOH given the chronic and recurrent nature of her gastritis, EtOH liver disease, etc. Antral biopsies will probably be available by 08/21/17 if not by late afternoon tomorrow. However, I do not anticipate that the biopsies will be greatly revealing. Medical - PN: Qual - VTE Deep Vein Thrombosis/Pulmonary Embolism Present on Admission: No
[2017-08-19] MEDS: cefTRIAXone 1 GM VIAL IV SCH (10:00)
[2017-08-19] MEDS ORDERED: FLU VACC QS2017-18 36MOS UP/PF 60 MCG/0.5 ML SYRINGE IM ONE (10:00)
[2017-08-19] MEDS ORDERED: PNEUMOCOCCAL 23-VAL P-SAC VAC 0.5 ML VIAL IM ONE (10:00)
--- NOTE | 2017-08-19 10:21 | Internal Med Progress Note ---
Medical - PN: Subj Patient information: Note initiated : 08/19/17 at 10:19 am Service Date, if different from initiated Date: [] Patient: Diane Xie 77 y/o F admitted on 08/18/17 for nausea,vomiting, diarrhea. Chief Complaint: [] Interval history: Ms. Xie is a 77 year old Female with h/o alcohol abuse, alcoholic cirrhosis , ? h/o UGI in the past, presents to the hospital for not feeling well x 2 days , The patient notes she has been dry heaving x 2-3 days, not able to tolerate po diet well. She notes that today she tried to vomit and the vomit was very dark, black in color, this am she also had black tarry stools. Her neighbor therefore brought her to the hospital for further evaluation and management. The patient has h/o fall recently and has back pain from a wedge fracture, She notes she has dizziness, and dryness of mouth, some shortness of breath and fatigue today, she denies any acute or bright red blood in the stools, no blood in vomitus, she denies any acute abdominal pain. The patient is a heavy alcohol consumer, has multiple EGD in the past, last There are no esophageal varices. There is a large abnormality in the antrum with edema, likely an ulcer. This was biopsied. The pyloric ring and duodenum were normal. The patient also has had 3 EGD in the past 2 -3 yrs showing gastritis, scaztki ring as well as angiodysplasia of stomach. No varices seen on the last EGD, however MRI abdomen done this year shows some varices She has had a colonoscopy showing hemorrhoids and hyperplastic polyp in 2014. She follows with Dr Queen/ Nilsa Hair for her cirrhosis, chr pancreatitis. The patient has h/o Afib, on coumadin followed by Dr Weaver In the ER the patient was tachycardic, with afib in rvr with HR of 150, the patient had Hb of 8.2, Na 131, creat 1.2, BUN 22 (baseline bun is 7-8), INR is 9 Patient is being admitted to the PCU for further management. Dr Ko has been called by ER Aug 18 Patient seen examined, no acute overnigh issues, patient has remained tachycardic, in aflutter with rvr on monitor, Hb this AM is 8.6, after 2 units of prbc, pt is to get EGD today. patient has some cramps on the right leg, which are a chr issue for her aug 19 Patient seen examined, she still has back pain, but no other concerns, still has black stools, which is expected hemoglobin is stable, she is in Afib with RVR and needs 4L oxygen, Chest X ray done today shows rosa congestion and right > left effusino. IVfluids stopped, IV lasix given, no echo in chart, will order echo. GI consult appreciated Pertinent ROS: Denies headache, dizziness Denies chest pain, palpitations Denies cough or shortness of breath Denies abdominal pain, nausea or vomiting. Back pain present, - Constitutional Vitals: Vital Signs Temp Pulse Resp BP Pulse Ox 98.3 F 132 H 20 142/85 98 08/19/17 04:00 08/19/17 07:21 08/19/17 07:21 08/19/17 05:50 08/19/17 07:21 Period Temp Pulse Resp BP Sys/Gomez Pulse Ox Last 24 Hr 97.9 F-98.6 F 80-132 10-24 111-142/68-123 90-98 Intake and Output 08/18/17 08/19/17 08/19/17 21:59 05:59 13:59 Intake Total 1068 / 1068 1150 / 1150 Output Total 600 / 600 300 / 300 Balance 468 / 468 850 / 850 Weight 115 lb Intake & Output: Intake & Output 08/18/17 08/19/17 08/19/17 21:59 05:59 13:59 Intake Total 1068 / 1068 1150 / 1150 Output Total 600 / 600 300 / 300 Balance 468 / 468 850 / 850 Weight 115 lb Intake: IV 948 / 948 1000 / 1000 Dextrose 5%-Lr W/20Meq KCl 1, 897 / 897 1000 / 1000 000 ml @ 100 mls/hr IV .Q10H [facility] Rx#:[id number] Vitamin B1 100 mg In Sodium 51 / 51 Chloride 0.9% 50 ml @ 50 mls/hr IV Q24H [facility] Rx#:[id number] Oral 120 / 120 150 / 150 Output: Void Amount 350 / 350 300 / 300 Urine/Stool Mix 250 / 250 Other: Meal Dinner Percent of Meal Consumed 50% # of times incontinent of 1 Bowels Exam: Constitutional; Afebrile, cooperative, alert, not in distress. Eyes- No icterus, , No periorbital swelling Ears- Ext ear normal, hearing normal to conversation. Neck- Midline trachea, supple Respiratory system: Air Entry equal on both sides, No crackles or wheezing, no rhonchi. CVS- tacycardic Rate irregular rhythm , S1,S2 heard, no gallop, no rub. 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 Medical - PN: Obj Da - Labs CBC & Chem 7: 08/19/17 03:54 08/19/17 03:54 Labs: Abnormal Lab Results 08/19/17 08/19/17 08/19/17 03:54 03:54 03:54 RBC 3.23 L Hgb 8.9 L Hct 27.6 L RDW 18.7 H Gran % Lymph % (Auto) Lymph # (Auto) PT 19.6 H INR 1.6 H Sodium Chloride Carbon Dioxide Anion Gap Creatinine Glucose 126 H Calcium 8.2 L Magnesium 1.5 L Total Bilirubin 1.1 H Direct Bilirubin 0.5 H GGT 70 H AST 53 H Alkaline Phosphatase Lactate Dehydrogenase 278 H CK-MB (CK-2) Total Protein 5.7 L Albumin 3.0 L 08/18/17 08/18/17 08/18/17 18:34 11:18 06:28 RBC 3.22 L Hgb 8.8 L 8.9 L Hct 27.0 L 27.2 L RDW 18.4 H Gran % Lymph % (Auto) Lymph # (Auto) 1.4 L PT INR Sodium Chloride Carbon Dioxide 20 L Anion Gap Creatinine Glucose 110 H Calcium 8.0 L Magnesium Total Bilirubin 1.4 H Direct Bilirubin 0.5 H GGT 71 H AST 58 H Alkaline Phosphatase Lactate Dehydrogenase 310 H CK-MB (CK-2) Total Protein 5.6 L Albumin 3.0 L 08/18/17 08/18/17 08/17/17 06:28 06:28 20:48 RBC 3.08 L Hgb 8.6 L Hct 25.8 L RDW 19.0 H Gran % Lymph % (Auto) Lymph # (Auto) PT 22.9 H INR 2.0 H Sodium Chloride Carbon Dioxide Anion Gap Creatinine Glucose Calcium Magnesium Total Bilirubin Direct Bilirubin GGT AST Alkaline Phosphatase Lactate Dehydrogenase CK-MB (CK-2) 3.0 H Total Protein Albumin 08/17/17 08/17/17 08/17/17 20:48 20:48 20:48 RBC 3.16 L Hgb 8.2 L Hct 25.5 L RDW 19.1 H Gran % 85.9 H Lymph % (Auto) 7.6 L Lymph # (Auto) 0.5 L PT 79.0 H INR 9.2 H* Sodium 131 L Chloride 91 L Carbon Dioxide 17 L Anion Gap 23.0 H Creatinine 1.3 H Glucose 148 H Calcium Magnesium Total Bilirubin 1.2 H Direct Bilirubin GGT AST 66 H Alkaline Phosphatase 126 H Lactate Dehydrogenase CK-MB (CK-2) Total Protein Albumin Meds: Medications Albuterol/Ipratropium (Duoneb) 3 ml NEB Q6HRT [facility] Last Admin: 08/19/17 01:05 Dose: 3 ml Ceftriaxone Sodium (Rocephin) 1 gm IV Q24H [facility] Last Admin: 08/19/17 10:00 Dose: 1 gm Folic Acid (Folic Acid) 1 mg PO DAILY [facility] Last Admin: 08/19/17 08:41 Dose: 1 mg Hydromorphone HCl (Dilaudid) 0.5 mg IV Q2HP PRN PRN Reason: PAIN LEVEL > 6 Last Admin: 08/18/17 22:39 Dose: 0.5 mg Thiamine HCl 100 mg/ Sodium (Chloride) 51 mls @ 50 mls/hr IV Q24H [facility] Stop: 08/19/17 16:02 Last Admin: 08/19/17 08:42 Dose: 50 mls/hr Iron Carb/Multivit/Kleberg/Folic Acid (Multivitamin W/Minerals) 1 tab PO DAILY [facility] Last Admin: 08/19/17 08:41 Dose: 1 tab Lorazepam (Ativan) 0 mg IV Q4HP PRN; Protocol PRN Reason: Alcohol Withdrawal Methocarbamol (Robaxin) 750 mg IV Q6HP PRN PRN Reason: Muscle Spasm Last Admin: 08/19/17 09:54 Dose: 750 mg Metoprolol Tartrate (Lopressor) 5 mg IV Q4HP PRN PRN Reason: Tachyarrhythmias Last Admin: 08/18/17 02:04 Dose: 5 mg Metoprolol Tartrate (Lopressor) 25 mg PO BID [facility] Last Admin: 08/19/17 08:41 Dose: 25 mg Naloxone HCl (Narcan) 0.1 mg IV Q2MIN PRN PRN Reason: Opiate Reversal Ondansetron HCl (Zofran) 4 mg IV Q4-6HP PRN PRN Reason: Nausea And Vomiting Pantoprazole Sodium (Protonix) 40 mg IV BIDAC [facility] Last Admin: 08/19/17 07:17 Dose: 40 mg Sodium Chloride (Saline Flush) 10 ml IV Q8 [facility] Last Admin: 08/19/17 06:00 Dose: 10 ml Medical - PN: A/P - Time Spent With Patient Total time spent is greater than 50% in coordination of care (as documented) at patient's floor/unit and/or counseling patient: - Narrative A/P Narrative: A/P Acute GI bleed: EGD showed gastritis, on IV PPI, off octreotide. Monitor Acute blood loss anemia: Hb stable at 8.9, transfuse as needed Hypercoagulation/ anticoagulation for Afib: Off coumadin due to gi bleed. patient has high risk factors for Stroke, her [id number] score is 6, indicating a 9.8 % chance of CVA, The patient unfortunately also has high risk of Bleeding , and has had GI bleed in the past and now, Her OBRI score indicates high risk with 10.6% risk of severe bleeding, and HASBLED score is also high risk indicating 4.9-19.6% risk of severe bleed. for now will hold off on anticoagulation and will refer patient back to cardiology to see if any other alternative is possible, perhaps low dose of newer anti coagulation agent like. Acute hypoxic resp failure: Due to chf, D/C IVF, no e/o PNA clinically, check procalcitonin. Decompensated CHF, : Get Echo, IV lasix, Afib with RVR: BP stable, start on PO metoprolol today, IV digoxin again today for rate control, get echo monitor. COPD: still smokes, duonebs q6 for now, no wheezing on exam chr pancreatitis: will need digestive enzymes once able to tolerate PO, resume home meds Cirrhosis: alcoholic, ? hepatic mass? repeat mri in 6 months planned, patient still drinks, MELD score cannot be calculated as she is on coumadin. CAD/ Hypothyroidism/ CVA? : Resume home meds Alcoholism: CIWA protocol while here, IV thiamine for now. PAIGE : Creat improved , back to bseline now, DVT SCD Full code advance diet as tolerated. Medical - PN: Qual - VTE Deep Vein Thrombosis/Pulmonary Embolism Present on Admission: No
[2017-08-19] MEDS ORDERED: LIPASE/PROTEASE/AMYLASE 1 CAP CAPSULE PO SCH ×2 (12:00→17:30)
[2017-08-19] MEDS ORDERED: NALOXONE HCL 0.4 MG/ML VIAL IV PRN (19:57)
[2017-08-19] MEDS ORDERED: PHYTONADIONE 5 MG in 0.9 % SODIUM CHLORIDE 50 ML IV ONE (19:57)
[2017-08-19] MEDS ORDERED: ONDANSETRON 4 MG/2 ML VIAL IV PRN (19:57)
[2017-08-19] MEDS ORDERED: LORazepam 2 MG/ML VIAL IV PRN (19:57)
[2017-08-19] MEDS ORDERED: HYDROmorphone 2 MG/ML SYRINGE IV PRN (19:57)
[2017-08-19] MEDS ORDERED: METHOCARBAMOL 1,000 MG/10 ML VIAL IV PRN (19:57)
[2017-08-19] MEDS ORDERED: METOPROLOL TARTRATE 5 MG/5 ML VIAL IV PRN (19:57)
[2017-08-19] MEDS ORDERED: oxyCODONE HCL 5 MG TABLET PO PRN (22:07)
[2017-08-19] MEDS: METOPROLOL TARTRATE 25 MG TABLET PO SCH (22:43)
[2017-08-20] MEDS: IPRATROPIUM/ALBUTEROL 3 ML AMPUL.NEB NEB SCH ×4 (01:21→19:14)
[2017-08-20] MEDS: 0.9 % SODIUM CHLORIDE 10 ML SYRINGE IV SCH ×4 (05:51→21:31)
[2017-08-20 06:04] LABS: Basophils # (Auto) 0 K/mcL (0.0-0.3); Basophils % (Auto) 0.2 % (0.0-2.0); Eosinophils # (Auto) 0.1 K/mcL (0.0-0.7); Eosinophils % (Auto) 0.7 % (0.0-7.0); Granulocytes % (Auto) 64.9 % (38.0-78.0); Lymphocytes # (Auto) 1.6 K/mcL (1.5-4.8); Lymphocytes % (Auto) 20.3 % (15.5-49.0); Mean Cell Volume 85.9 fL (80.0-100.0); Mean Corpuscular HGB Conc 32.4 g/dL (31.0-36.0); Mean Corpuscular Hemoglobin 27.8 pg (26.0-34.0); Monocytes # (Auto) 1.1 K/mcL (0.1-0.9); Monocytes % (Auto) 13.9 % (1.0-12.0); Platelet Count 186 K/mcL (140-440); RBC 3.41 M/mcL (4.00-5.20); Red Cell Distribution Width 19.4 % (11.5-14.5)
[2017-08-20 06:25] LABS: ALT/SGPT 20 U/l (0-40); Alkaline Phosphatase 106 U/L (39-117); Bilirubin,Direct 0.6 mg/dL (0.0-0.3); Blood Urea Nitrogen 11 mg/dl (8-23); Gamma Glutamyl Transpeptidase 80 U/L (5-36); Magnesium 1.9 mg/dL (1.6-2.5); Uric Acid 4.4 mg/dL (2.5-8.0)
[2017-08-20] MEDS ORDERED: FUROSEMIDE 20 MG/2 ML VIAL IV ONE (07:29)
[2017-08-20] MEDS ORDERED: LEVOTHYROXINE 75 MCG TABLET PO SCH (07:30)
[2017-08-20] MEDS: PANTOPRAZOLE 40 MG VIAL IV SCH ×2 (08:16→17:15)
[2017-08-20] MEDS: MULTIVIT,THER IRON,CA,FA & MIN 1 TABLET PO SCH (08:16)
[2017-08-20] MEDS ORDERED: VANCOMYCIN PER PHARMACY IV SCH (08:16)
[2017-08-20] MEDS: LEVOTHYROXINE 75 MCG TABLET PO SCH (08:16)
[2017-08-20] MEDS: FOLIC ACID 1 MG TABLET PO SCH (08:16)
[2017-08-20] MEDS ORDERED: MAGNESIUM SULFATE 2 GM/50 ML BAG IV ONE (08:17)
[2017-08-20] MEDS: LIPASE/PROTEASE/AMYLASE 1 CAP CAPSULE PO SCH ×3 (08:20→17:15)
[2017-08-20] MEDS ORDERED: LORazepam 0.5 MG TABLET PO PRN (08:26)
--- NOTE | 2017-08-20 08:28 | Operative Note ---
DATE OF OPERATION: 08/18/2017 PROCEDURE: Esophagogastroduodenoscopy with biopsies. WATER SPONGER AND IN STORE REPRESENTATIVE: Abhijeet Ko M.D. ANESTHETIC USED: Propofol 50 mg IV and Versed 2 mg IV. PREOPERATIVE DIAGNOSIS: A 77-year-old white female was admitted through the emergency room last night after presenting with one day of melena and coffee-ground emesis. She is an alcohol drinker and even though her ethanol level was undetectable on admission, there is a long history of alcohol drinking. Furthermore, she is on Coumadin for atrial fibrillation, and she presented with an INR of 9.2, hemoglobin of 8.2, platelets normal at 282,000. BUN was 22 and creatinine 1.3. Total bilirubin 1.2 with AST 66 and ALT 21. Alkaline phosphatase 126. She denies abdominal pain. The last three days she has been not able to eat because it makes her feel nauseated to do so. I reviewed the office records I had available to me before coming over for endoscopy today. The last record I had was of a [address] Queen. No varices were noted on that study. Today, I see that apparently she has had more recent followup with Dr. Queen and SINDI Shields at the office here in [place]. There is mention made here of an 10/2016 EGD as the most recent EGD. No varices were seen, but there was a large abnormality in the antrum with edema thought to be an ulcer. Biopsies were pending. I am not sure of the results of that. There is also mentioned in the history and physical on admission that she has had three EGDs in the past 2 to 3 years with gastritis, a Schatzki's ring, angiodysplasia of the stomach, and no varices. An MRI apparently done within the last year, however, did show some varices. Last colonoscopy referenced was in 2014, I believe by Dr. Queen as well. POSTOPERATIVE DIAGNOSIS: Moderate amount of altered blood present in the stomach but no active bleeding. I did note the antral deformity with edema and friability of the mucosa but no actual ulcer or mass identified. I did biopsy the antrum x2 for further evaluation. DESCRIPTION OF PROCEDURE: Prior to the procedure the patient provided her own informed consent. The patient was evaluated and considered medically fit for endoscopy. With the patient in the left lateral decubitus position, the gastroscope was advanced via the mouth to the esophagus under direct vision. The esophagus appears normal throughout its length without ulcer, stricture, mass, or significant varices. No Clau-Jaimes tear seen. At the stomach there is a moderate amount of altered blood present. Approximately 150 mL were aspirated through the scope. There was no fresh blood identified. After aspirating as much of the altered blood as possible, I also irrigated the stomach to improve visualization. I found no gastric varices. No identified AVMs of the stomach. The prepyloric antrum is deformed. It is edematous and the mucosa is blotchy and friable. I am not sure if this represents a form of GAVE syndrome. The prepyloric area was deformed, and there was some superficial erosion of the pyloric channel but no actual ulcer. The duodenal bulb was unremarkable, and I was able to reach the fourth portion of the duodenum and found no bleeding sites within the duodenum at all. I brought the scope back to the gastric antrum and took a couple of biopsies from the mucosa there. It did bleed fairly liberally. I should note that today after receiving vitamin K and FFP, her INR is 2, down from 9.2 last night. COMPLICATIONS: None immediate. RECOMMENDATIONS AND FOLLOWUP: I think we can discontinue the octreotide infusion since she does not seem to have any significant varices. Okay to continue the PPI therapy intravenously while her oral intake is reduced. Okay with GI to advance to a full liquid diet as tolerated. Follow up biopsies and compare to biopsies that apparently were taken several months ago I believe by Dr. Queen. Perhaps consideration for a different anticoagulant therapy other than Coumadin given her tendency to drink alcohol and presentation with this markedly elevated INR. Of course, I will defer this to her PCP and others involved with her long-term outpatient care. LINA:eliu Job ID: [id number] Doc ID: [id number] Abhijeet Queen MD
[2017-08-20] MEDS: METOPROLOL TARTRATE 25 MG TABLET PO SCH ×2 (08:43→21:30)
[2017-08-20] MEDS ORDERED: LIDOCAINE PATCH TOPICAL SCH ×2 (10:00→22:00)
[2017-08-20] MEDS: VANCOMYCIN 1,000 MG in 0.9 % SODIUM CHLORIDE 250 ML IV SCH (10:07)
[2017-08-20] MEDS: PIPERACILLIN SODIUM/TAZOBACTAM 2.25 GM in DEXTROSE 5% IN WATER 50 ML IV SCH ×4 (10:07→23:51)
[2017-08-20] MEDS: cefTRIAXone 1 GM VIAL IV SCH (10:37)
[2017-08-20] MEDS: LIDOCAINE PATCH TOPICAL SCH (13:09)
--- NOTE | 2017-08-20 13:24 | Surgical Pathology Report ---
HISTOLOGY SPECIMEN MICROSCOPIC DIAGNOSIS STOMACH, PREPYLORIC ANTRUM, BIOPSY: -- MILD CHRONIC GASTRITIS WITH FEATURES CONSISTENT WITH REACTIVE GASTROPATHY. -- ALCIAN YELLOW STAIN IS NEGATIVE FOR HELICOBACTER ORGANISMS (ADEQUATE TECHNICAL CONTROL). -- NO EVIDENCE OF INTESTINAL METAPLASIA, DYSPLASIA, OR MALIGNANCY. (SE:[email or web address]) CLINICAL HISTORY Melena, coffee ground emesis; diarrhea; nausea. PROCEDURAL IMPRESSION Ulcer. GROSS DESCRIPTION Received in formalin labeled prepyloric antrum biopsy, is a segment of horn-white mucosal tissue measuring 0.6 cm in greatest dimension. Entirely submitted in one cassette. (RLF:adj) Electronically Signed by: Kaylah Machado D.O.
--- NOTE | 2017-08-20 15:24 | Internal Med Progress Note ---
Medical - PN: Subj Patient information: Note initiated : 08/20/17 at 3:22 pm Service Date, if different from initiated Date: [] Patient: Diane Xie 77 y/o F admitted on 08/18/17 for Nausea, Vomiting, Diarrhea/GI Bleed, Dehydration. Chief Complaint: [] Interval history: Ms. Xie is a 77 year old Female with h/o alcohol abuse, alcoholic cirrhosis , ? h/o UGI in the past, presents to the hospital for not feeling well x 2 days , The patient notes she has been dry heaving x 2-3 days, not able to tolerate po diet well. She notes that today she tried to vomit and the vomit was very dark, black in color, this am she also had black tarry stools. Her neighbor therefore brought her to the hospital for further evaluation and management. The patient has h/o fall recently and has back pain from a wedge fracture, She notes she has dizziness, and dryness of mouth, some shortness of breath and fatigue today, she denies any acute or bright red blood in the stools, no blood in vomitus, she denies any acute abdominal pain. The patient is a heavy alcohol consumer, has multiple EGD in the past, last There are no esophageal varices. There is a large abnormality in the antrum with edema, likely an ulcer. This was biopsied. The pyloric ring and duodenum were normal. The patient also has had 3 EGD in the past 2 -3 yrs showing gastritis, scaztki ring as well as angiodysplasia of stomach. No varices seen on the last EGD, however MRI abdomen done this year shows some varices She has had a colonoscopy showing hemorrhoids and hyperplastic polyp in 2014. She follows with Dr Queen/ Nilsa Hair for her cirrhosis, chr pancreatitis. The patient has h/o Afib, on coumadin followed by Dr Weaver In the ER the patient was tachycardic, with afib in rvr with HR of 150, the patient had Hb of 8.2, Na 131, creat 1.2, BUN 22 (baseline bun is 7-8), INR is 9 Patient is being admitted to the PCU for further management. Dr Ko has been called by ER Aug 18 Patient seen examined, no acute overnigh issues, patient has remained tachycardic, in aflutter with rvr on monitor, Hb this AM is 8.6, after 2 units of prbc, pt is to get EGD today. patient has some cramps on the right leg, which are a chr issue for her aug 19 Patient seen examined, she still has back pain, but no other concerns, still has black stools, which is expected hemoglobin is stable, she is in Afib with RVR and needs 4L oxygen, Chest X ray done today shows rosa congestion and right > left effusino. IVfluids stopped, IV lasix given, no echo in chart, will order echo. GI consult appreciated Aug 20 Patient seen examined, no acute overnight events, HR stable, bp soft, pt has no new complaints she still remains on oxygen, this AM had new onset fever, although she has no cough, normal procalcitonin, in light of fever and possible infiltrate on X ray , get blood cx and start on IV vanco and zosyn for HCAP pna; Patient hb remains stable long discussion with the patients daugther explaining the overall poor prognosis. all questions answered. Echo reviewed, normal lvef, Pertinent ROS: Denies headache, dizziness Denies chest pain, palpitations Denies cough or shortness of breath Denies abdominal pain, nausea or vomiting. - Constitutional Vitals: Vital Signs Temp Pulse Resp BP Pulse Ox 100.0 F H 89 16 93/62 92 08/20/17 11:53 08/20/17 07:59 08/20/17 11:53 08/20/17 11:53 08/20/17 11:53 Period Temp Pulse Resp BP Sys/Gomez Pulse Ox Last 24 Hr 98.2 F-100.9 F 82-104 14-20 93-144/62-93 89-94 Intake and Output 08/20/17 08/20/17 08/20/17 05:59 13:59 21:59 Intake Total 290 / 290 Output Total Balance -1 / -1 290 / 290 Intake & Output: Intake & Output 08/20/17 08/20/17 08/20/17 05:59 13:59 21:59 Intake Total 290 / 290 Output Total 1 Balance -1 / -1 290 / 290 Intake: IV 50 / 50 Zosyn 2.25 gm In Dextrose 5% in 50 / 50 Water 50 ml @ 100 mls/hr IV Q6H [facility] Rx#:[id number] Oral 240 / 240 Output: # of times incontinent of urine Other: Meal Lunch Percent of Meal Consumed 100% # Voids 1 Exam: Constitutional; Afebrile, cooperative, alert, not in distress. Eyes- No icterus, , No periorbital swelling Ears- Ext ear normal, hearing normal to conversation. Neck- Midline trachea, supple Respiratory system: Air Entry equal on both sides, rosa crackles at bases. CVS- Rate rhythm irregular, S1,S2 heard, no gallop, no rub. 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 Medical - PN: Obj Da - Labs CBC & Chem 7: 08/20/17 03:30 08/20/17 03:30 Labs: Abnormal Lab Results 08/20/17 08/20/17 08/20/17 03:30 03:30 03:30 RBC 3.41 L Hgb 9.5 L Hct 29.3 L RDW 19.4 H Gran % Lymph % (Auto) [place] % (Auto) 13.9 H Lymph # (Auto) [place] # (Auto) 1.1 H PT 17.2 H INR 1.4 H Sodium 132 L Chloride 93 L Carbon Dioxide Anion Gap Creatinine Glucose 117 H Calcium Phosphorus 2.1 L Magnesium Total Bilirubin 1.3 H Direct Bilirubin 0.6 H GGT 80 H AST 62 H Alkaline Phosphatase Lactate Dehydrogenase 310 H CK-MB (CK-2) NT-Pro-B Natriuret Pep Total Protein Albumin 3.0 L 08/19/17 08/19/17 08/19/17 09:35 03:54 03:54 RBC Hgb Hct RDW Gran % Lymph % (Auto) [place] % (Auto) Lymph # (Auto) [place] # (Auto) PT 19.6 H INR 1.6 H Sodium Chloride Carbon Dioxide Anion Gap Creatinine Glucose 126 H Calcium 8.2 L Phosphorus Magnesium 1.5 L Total Bilirubin 1.1 H Direct Bilirubin 0.5 H GGT 70 H AST 53 H Alkaline Phosphatase Lactate Dehydrogenase 278 H CK-MB (CK-2) NT-Pro-B Natriuret Pep 1268.0 H Total Protein 5.7 L Albumin 3.0 L 08/19/17 08/18/1708/18/18 03:54 18:34 11:18 RBC 3.23 L 3.22 L Hgb 8.9 L 8.8 L 8.9 L Hct 27.6 L 27.0 L 27.2 L RDW 18.7 H 18.4 H Gran % Lymph % (Auto) [place] % (Auto) Lymph # (Auto) 1.4 L [place] # (Auto) PT INR Sodium Chloride Carbon Dioxide Anion Gap Creatinine Glucose Calcium Phosphorus Magnesium Total Bilirubin Direct Bilirubin GGT AST Alkaline Phosphatase Lactate Dehydrogenase CK-MB (CK-2) NT-Pro-B Natriuret Pep Total Protein Albumin 08/18/17 08/18/17 08/18/17 06:28 06:28 06:28 RBC 3.08 L Hgb 8.6 L Hct 25.8 L RDW 19.0 H Gran % Lymph % (Auto) [place] % (Auto) Lymph # (Auto) [place] # (Auto) PT 22.9 H INR 2.0 H Sodium Chloride Carbon Dioxide 20 L Anion Gap Creatinine Glucose 110 H Calcium 8.0 L Phosphorus Magnesium Total Bilirubin 1.4 H Direct Bilirubin 0.5 H GGT 71 H AST 58 H Alkaline Phosphatase Lactate Dehydrogenase 310 H CK-MB (CK-2) NT-Pro-B Natriuret Pep Total Protein 5.6 L Albumin 3.0 L 08/17/17 08/17/17 08/17/17 20:48 20:48 20:48 RBC Hgb Hct RDW Gran % Lymph % (Auto) [place] % (Auto) Lymph # (Auto) [place] # (Auto) PT 79.0 H INR 9.2 H* Sodium 131 L Chloride 91 L Carbon Dioxide 17 L Anion Gap 23.0 H Creatinine 1.3 H Glucose 148 H Calcium Phosphorus Magnesium Total Bilirubin 1.2 H Direct Bilirubin GGT AST 66 H Alkaline Phosphatase 126 H Lactate Dehydrogenase CK-MB (CK-2) 3.0 H NT-Pro-B Natriuret Pep Total Protein Albumin 08/17/17 20:48 RBC 3.16 L Hgb 8.2 L Hct 25.5 L RDW 19.1 H Gran % 85.9 H Lymph % (Auto) 7.6 L [place] % (Auto) Lymph # (Auto) 0.5 L [place] # (Auto) PT INR Sodium Chloride Carbon Dioxide Anion Gap Creatinine Glucose Calcium Phosphorus Magnesium Total Bilirubin Direct Bilirubin GGT AST Alkaline Phosphatase Lactate Dehydrogenase CK-MB (CK-2) NT-Pro-B Natriuret Pep Total Protein Albumin Meds: Medications Albuterol/Ipratropium (Duoneb) 3 ml NEB Q6HRT [facility] Last Admin: 08/20/17 07:15 Dose: 3 ml Lipase/Protease/Amylase (Creon) 2 cap PO TIDCC [facility] Last Admin: 08/20/17 12:58 Dose: 2 cap Ceftriaxone Sodium (Rocephin) 1 gm IV Q24H [facility] Last Admin: 08/20/17 10:37 Dose: 1 gm Folic Acid (Folic Acid) 1 mg PO DAILY [facility] Last Admin: 08/20/17 08:16 Dose: 1 mg Piperacillin Sod/Tazobactam (Sod 2.25 gm/ Dextrose) 50 mls @ 100 mls/hr IV Q6H [facility] Last Admin: 08/20/17 13:00 Dose: 100 mls/hr Vancomycin HCl 1,000 mg/ (Sodium Chloride) 250 mls @ 250 mls/hr IV Q24H [facility] Last Admin: 08/20/17 10:07 Dose: 250 mls/hr Iron Carb/Multivit/Jenison/Folic Acid (Multivitamin W/Minerals) 1 tab PO DAILY [facility] Last Admin: 08/20/17 08:16 Dose: 1 tab Levothyroxine Sodium (Synthroid) 75 mcg PO QAMAC [facility] Last Admin: 08/20/17 08:16 Dose: 75 mcg Lidocaine (Lidoderm) 0 patch TOPICAL DAILY@2200 [facility] Lidocaine (Lidoderm) 1 patch TOPICAL DAILY@1000 [facility] Last Admin: 08/20/17 13:09 Dose: 1 patch Lorazepam (Ativan) 0.5 mg PO Q4HP PRN PRN Reason: ANXIETY/SEDATION Last Admin: 08/20/17 08:42 Dose: 0.5 mg Methocarbamol (Robaxin) 750 mg IV Q6HP PRN PRN Reason: Muscle Spasm Metoprolol Tartrate (Lopressor) 5 mg IV Q4HP PRN PRN Reason: Tachyarrhythmias Metoprolol Tartrate (Lopressor) 25 mg PO BID [facility] Last Admin: 08/20/17 08:43 Dose: 25 mg Naloxone HCl (Narcan) 0.1 mg IV Q2MIN PRN PRN Reason: Opiate Reversal Ondansetron HCl (Zofran) 4 mg IV Q4-6HP PRN PRN Reason: Nausea And Vomiting Oxycodone HCl (Roxicodone) 5 mg PO Q4HP PRN PRN Reason: Pain Last Admin: 08/19/17 22:44 Dose: 5 mg Pantoprazole Sodium (Protonix) 40 mg IV BIDAC [facility] Last Admin: 08/20/17 08:16 Dose: 40 mg Sodium Chloride (Saline Flush) 10 ml IV Q8 [facility] Last Admin: 08/20/17 08:17 Dose: 10 ml Vancomycin HCl (Vancomycin Per Pharmacy) 1 order IV UD [facility] Medical - PN: A/P - Time Spent With Patient Total time spent is greater than 50% in coordination of care (as documented) at patient's floor/unit and/or counseling patient: - Narrative A/P Narrative: A/P Acute GI bleed: EGD showed gastritis, on IV PPI, off octreotide. Monitor for now , Acute blood loss anemia: Hb stable at 9.5, On PPI Hypercoagulation/ anticoagulation for Afib: Off coumadin due to gi bleed. patient has high risk factors for Stroke, her [id number] score is 6, indicating a 9.8 % chance of CVA, The patient unfortunately also has high risk of Bleeding , and has had GI bleed in the past and now, Her OBRI score indicates high risk with 10.6% risk of severe bleeding, and HASBLED score is also high risk indicating 4.9-19.6% risk of severe bleed. for now will hold off on anticoagulation and will refer patient back to cardiology to see if any other alternative is possible, perhaps low dose of newer anti coagulation agent like. Acute hypoxic resp failure: Due to chf, possible pna, stable on oxygen via NC< 2 -4 L /min HCAP PNA: fever today, blood culture sent, started on broad spectrum antibiotics and monitor, recheck X ray in AM. Decompensated CHF, : Get Echo, IV lasix, pt stable. Afib with RVR: BP stable, but on lowe end, on metoprolol 25 bid, doing well,HR stable COPD: still smokes, duonebs q6 for now, no wheezing on exam chr pancreatitis: will need digestive enzymes once able to tolerate PO, resume home meds Cirrhosis: alcoholic, ? hepatic mass? repeat mri in 6 months planned, patient still drinks, MELD score cannot be calculated as she is on Coumadin. CAD/ Hypothyroidism/ CVA? : Resume home meds Alcoholism: d/c ciwa as scores are low, prn ativan for now, PAIGE : Creat improved , back to bseline now, DVT hep sq now, given no serious bleeding lesion on EGD Full code advance diet as tolerated. Medical - PN: Qual - VTE Deep Vein Thrombosis/Pulmonary Embolism Present on Admission: No
[2017-08-20] MEDS: HEPARIN 5,000 UNIT/ML VIAL SQ SCH ×2 (17:14→21:30)
[2017-08-21] MEDS: IPRATROPIUM/ALBUTEROL 3 ML AMPUL.NEB NEB SCH ×3 (00:55→13:19)
[2017-08-21 05:24] LABS: Basophils # (Auto) 0 K/mcL (0.0-0.3); Basophils % (Auto) 0.1 % (0.0-2.0); Eosinophils # (Auto) 0.1 K/mcL (0.0-0.7); Eosinophils % (Auto) 0.8 % (0.0-7.0); Granulocytes % (Auto) 62.7 % (38.0-78.0); Lymphocytes # (Auto) 1.4 K/mcL (1.5-4.8); Lymphocytes % (Auto) 16.7 % (15.5-49.0); Mean Cell Volume 86.2 fL (80.0-100.0); Mean Corpuscular HGB Conc 32.6 g/dL (31.0-36.0); Mean Corpuscular Hemoglobin 28.1 pg (26.0-34.0); Monocytes # (Auto) 1.7 K/mcL (0.1-0.9); Monocytes % (Auto) 19.7 % (1.0-12.0); Platelet Count 189 K/mcL (140-440); RBC 3.45 M/mcL (4.00-5.20)
[2017-08-21 05:43] LABS: ALT/SGPT 18 U/l (0-40); Albumin 2.7 gm/dL (3.2-5.2); Albumin/Globulin Ratio 0.9 (1.0-2.3); Alkaline Phosphatase 102 U/L (39-117); Bilirubin,Direct 0.6 mg/dL (0.0-0.3); Blood Urea Nitrogen 12 mg/dl (8-23); Gamma Glutamyl Transpeptidase 75 U/L (5-36); Magnesium 1.7 mg/dL (1.6-2.5); Uric Acid 3.2 mg/dL (2.5-8.0)
[2017-08-21] MEDS: PIPERACILLIN SODIUM/TAZOBACTAM 2.25 GM in DEXTROSE 5% IN WATER 50 ML IV SCH ×3 (06:26→17:28)
[2017-08-21] MEDS: 0.9 % SODIUM CHLORIDE 10 ML SYRINGE IV SCH ×2 (06:31→13:50)
[2017-08-21] MEDS: LEVOTHYROXINE 75 MCG TABLET PO SCH (07:37)
[2017-08-21] MEDS: LIPASE/PROTEASE/AMYLASE 1 CAP CAPSULE PO SCH ×4 (07:37→17:18)
[2017-08-21] MEDS: PANTOPRAZOLE 40 MG VIAL IV SCH ×2 (07:37→17:18)
[2017-08-21] MEDS ORDERED: FUROSEMIDE 20 MG/2 ML VIAL IV ONE (07:47)
[2017-08-21] MEDS: METOPROLOL TARTRATE 25 MG TABLET PO SCH (08:51)
[2017-08-21] MEDS: MULTIVIT,THER IRON,CA,FA & MIN 1 TABLET PO SCH (08:51)
[2017-08-21] MEDS: FOLIC ACID 1 MG TABLET PO SCH (08:51)
[2017-08-21] MEDS: HEPARIN 5,000 UNIT/ML VIAL SQ SCH (08:51)
[2017-08-21] MEDS: VANCOMYCIN 1,000 MG in 0.9 % SODIUM CHLORIDE 250 ML IV SCH (09:22)
--- NOTE | 2017-08-21 09:47 | XRay Report ---
CLINICAL INFORMATION: History of pneumonia and CHF COMPARISON: 08/19/2017 FINDINGS: Moderate cardiomegaly is unchanged. Mediastinum is unremarkable. The pulmonary vessels have returned to normal in caliber. Moderate patchy vague infiltrate has developed in the right lung apex. Bibasilar infiltrates or atelectasis have improved considerably now small. Bilateral pleural effusions are also smaller IMPRESSION: 1. Interval resolution - CHF 2. New moderate, yet vague, right apical lung infiltrate 3. Marked improvement in bibasilar atelectasis/infiltrates and effusions - now small Interpreted and Authenticated by: Abhijeet Shepherd 08/21/17
[2017-08-21] MEDS: cefTRIAXone 1 GM VIAL IV SCH (10:39)
[2017-08-21] MEDS: LIDOCAINE PATCH TOPICAL SCH (10:40)
--- NOTE | 2017-08-21 13:45 | Discharge Summary ---
Medical - DS: Prov Patient information: Note initiated : 08/21/17 at 1:40 pm Service Date, if different from initiated Date: [] Patient: Diane Xie 77 y/o F admitted on 08/18/17 for Nausea, Vomiting, Diarrhea/GI Bleed, Dehydration. Chief Complaint: [] Date of admission: 08/18/17 00:08 Discharge date: 08/21/17 Primary care physician: Rom Cosme Admitting clinician: Kathi Vaughn Consults: 08/18/17 09:09 Consult to Physician [CONS] Routine Comment: Consulting Provider: Abhijeet Ko Reason For Exam: GI bleed Discharging clinician: Kathi Vaughn Medical - DS: Meds - Discharge Medications Prescriptions: Levofloxacin [Levaquin] 500 mg PO DAILY #5 tab Omeprazole [Prilosec] 20 mg PO BIDAC #60 cap Active and Home Medications: Home Medications levothyroxine 75 mcg tablet 75 mcg PO DAILY #90 tab 01/11/16 [Rx Confirmed 07/11 Last Taken 12/10/16] clobetasol 0.05 % topical ointment 1 applic TOPICAL BID PRN #60 g 05/18/16 [Rx Confirmed 07/11/17 Last Taken 12/10/16] lipase 40,000-protease 136,000-amylase 218,000 unit capsule,delay rel 1 cap PO TID 02/06/17 [History Confirmed 07/11/17 Last Taken Unknown] omeprazole 20 mg capsule,delayed release 20 mg PO QDAY cap 02/06/17 [History Confirmed 07/11/17 Last Taken Unknown] warfarin 3 mg tablet 3 mg PO QDAY tab 02/06/17 [History Confirmed 07/11/17 Last Taken Unknown] furosemide 20 mg tablet 20 mg PO QDAY #30 tab 02/21/17 [Rx Confirmed 07/11/17 Last Taken Unknown] tramadol 50 mg tablet 50 mg PO Q8H PRN 30 Days #90 tab 04/24/17 [Rx Confirmed Last Taken Unknown] hydrocodone 5 mg-acetaminophen 325 mg tablet 1 tab PO Q4HP PRN #12 tab 07/18/17 [Rx Last Taken Unknown] HYDROcodone/APAP 5/325MG [Stambaugh 5/325Mg] 1 tab PO Q6HP PRN #30 tab 08/03/17 [Rx Last Taken Unknown] methocarbamol 500 mg tablet 500 mg PO QDAY PRN #30 tab 08/16/17 [Rx Last Taken Unknown] Medical - DS: Hosp Hospital course: Ms. Xie is a 77 year old Female with h/o alcohol abuse, alcoholic cirrhosis , ? h/o UGI in the past, presented to the hospital for not feeling well x 2 days , The patient notes she has been dry heaving x 2-3 days, not able to tolerate po diet well. She notes that today she tried to vomit and the vomit was very dark, black in color, this am she also had black tarry stools. Her neighbor therefore brought her to the hospital for further evaluation and management. The patient has h/o fall recently and has back pain from a wedge fracture, She notes she has dizziness, and dryness of mouth, some shortness of breath and fatigue today, she denies any acute or bright red blood in the stools, no blood in vomitus, she denies any acute abdominal pain. The patient is a heavy alcohol consumer, has multiple EGD in the past, last There are no esophageal varices. There is a large abnormality in the antrum with edema, likely an ulcer. This was biopsied. The pyloric ring and duodenum were normal. The patient also has had 3 EGD in the past 2 -3 yrs showing gastritis, scaztki ring as well as angiodysplasia of stomach. No varices seen on the last EGD, however MRI abdomen done this year shows some varices She has had a colonoscopy showing hemorrhoids and hyperplastic polyp in 2014. She follows with Dr Queen/ Nilsa Hair for her cirrhosis, chr pancreatitis. The patient has h/o Afib, on coumadin followed by Dr Weaver In the ER the patient was tachycardic, with afib in rvr with HR of 150, the patient had Hb of 8.2, Na 131, creat 1.2, BUN 22 (baseline bun is 7-8), INR is 9 Patient is being admitted to the PCU for further management. Acute GI bleed,: s/p EGD, no varices or acute ucler, gen gastritis, and some dark blood noted, biopsy taken STOMACH, PREPYLORIC ANTRUM, BIOPSY: -- MILD CHRONIC GASTRITIS WITH FEATURES CONSISTENT WITH REACTIVE GASTROPATHY. -- ALCIAN YELLOW STAIN IS NEGATIVE FOR HELICOBACTER ORGANISMS (ADEQUATE TECHNICAL CONTROL). -- NO EVIDENCE OF INTESTINAL METAPLASIA, DYSPLASIA, OR MALIGNANCY Patient responded to treatment, was on IV PPI will be discharged on bid omeprazole. Acute blood loss anemia: s/p transfusion x 2 units, hb remained stable post transfusion. FOllow up with PCP Afib/ Hypercoagulation/ RVR: Patient had afib with RVR on presentation, her INR was elevated, to 9.2, the patient INR was corrected with Vit K as well as FFP, the patient responded well to treatment. The patient has had mutiple EGD and has chr anemia, h/o GIB in the past. She is an alcoholic and cirrhotic. 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 Her [id number] score is high and has approx 10% risk of CVA, unfortunately she also has very high risk of bleeding and her HASBLED score and OBRI scores are also high incdicating 10% annual risk. I have held off on her oral coumadin at this time. I will refer patient back to GI / Cardiology to evaluate need and safety of use of oral anticoagulation agents in this patient. Perhaps a lower dose of newer anti coagulation agent? Cirrhosis/ Alcoholism: Patient has etoh related cirhossis, had mild withdrawal during the hospital stay, but needs to stop drinking. THis has been discussed and she has been counselled multiple times by her pcp and GI physician it seems she is not someone who is willing to give up. Her overall prognosis is grim if she continues to drink, and this has been conveyed to the patient and her daugther. BAck pain: she has acute on chr back pain due to a recent fall and takes medications for same, Advised to continue same, if her pain is not controlled by reasonable doses of oral meds, then perhaps a referral to pain clinc will be warranted. Her hospital stay was complicated with fluid overload and HCAP pneumonia, patient responded well to IV lasix and antibiotics, microbiology is neg. She will take po levofloxacin 500mg qd x 5 days. The rest of the stay in the hospital was uneventful, no other changes to her meds doen except as listed above. The patient wishes to be discharged home today, and will be discharged with daughter to her home. Discharge diagnosis: GI bleed, Pneumonia - Time Spent with Patient Total time spent providing and/or coordinating discharge services: Greater than 30 minutes Medical - DS: Exam - Constitutional Vitals: Vital Signs Temp Pulse Pulse Resp BP BP BP 08/21/17 13:24 91 H 20 08/21/17 12:00 99.7 F H 90 18 121/73 08/21/17 07:59 91 H 18 08/21/17 07:40 97.4 F 82 16 115/65 08/21/17 07:28 100 H 18 08/21/17 03:31 99.0 F H 120 H 18 117/74 08/21/17 00:24 99.9 F H 75 16 115/54 08/20/17 20:00 99.0 F H 104 H 16 97/63 08/20/17 19:17 95 H 16 08/20/17 19:15 08/20/17 19:14 08/20/17 16:00 99.6 F H 16 129/113 08/20/17 15:28 95 H 20 Pulse Ox 08/21/17 13:24 08/21/17 12:00 95 08/21/17 07:59 93 08/21/17 07:40 90 08/21/17 07:28 08/21/17 03:31 92 08/21/17 00:24 95 08/20/17 20:00 93 08/20/17 19:17 08/20/17 19:15 93 08/20/17 19:14 93 08/20/17 16:00 93 08/20/17 15:28 Intake and Output 08/20/17 08/21/17 08/21/17 21:59 05:59 13:59 Intake Total 230 / 230 350 / 350 880 / 880 Output Total 2 / 2 Balance 230 / 230 350 / 350 878 / 878 Intake: IV 50 / 50 50 / 50 300 / 300 Zosyn 2.25 gm In Dextrose 5% in 50 / 50 50 / 50 50 / 50 Water 50 ml @ 100 mls/hr IV Q6H [facility] Rx#:[id number] Vancomycin 1,000 mg In Sodium 250 / 250 Chloride 0.9% 250 ml @ 250 mls/ hr IV Q24H [facility] Rx#:[id number] Oral 180 / 180 300 / 300 580 / 580 Output: Void Amount 1 / # of times incontinent of urine Other: Meal Lunch Percent of Meal Consumed 75% Feeding Ability Assist with Tray Set Up # Voids 0 1 2 Weight 114 lb Additional comments: Constitutional; Afebrile, cooperative, alert, not in distress. Eyes- No icterus, , No periorbital swelling Ears- Ext ear normal, hearing normal to conversation. Neck- Midline trachea, supple Respiratory system: Air Entry equal on both sides, No crackles or wheezing, no rhonchi. CVS- Rate rhythm regular, S1,S2 heard, no gallop, no rub. 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 Medical - DS: Data Labs on day of discharge: Labs from last 24 hours 08/21/17 08/21/17 08/21/17 03:30 03:30 03:30 WBC 8.6 RBC 3.45 L Hgb 9.7 L Hct 29.7 L MCV 86.2 MCH 28.1 MCHC 32.6 RDW 20.0 H Plt Count 189 MPV 8.6 Gran % 62.7 Lymph % (Auto) 16.7 [place] % (Auto) 19.7 H Eos % (Auto) 0.8 Baso % (Auto) 0.1 Gran # 5.4 Lymph # (Auto) 1.4 L [place] # (Auto) 1.7 H Eos # (Auto) 0.1 Baso # (Auto) 0 PT 16.2 H INR 1.3 H Sodium 131 L Potassium 3.9 Chloride 93 L Carbon Dioxide 27 Anion Gap 11.0 BUN 12 Creatinine 1.1 GFR Calculation 48 Glucose 101 Uric Acid 3.2 Calcium 8.5 L Phosphorus 2.4 L Magnesium 1.7 Total Bilirubin 1.5 H Direct Bilirubin 0.6 H GGT 75 H AST 48 H ALT 18 Alkaline Phosphatase 102 Lactate Dehydrogenase 304 H Total Protein 5.7 L Albumin 2.7 L Globulin 3.0 Albumin/Globulin Ratio 0.9 L Triglycerides 47 Preliminary micro results at discharge 08/20/17 08:38 Blood Culture - Preliminary Blood 08/20/17 08:30 Blood Culture - Preliminary Blood Medical - DS: A/P - Patient/Caregiver Discharge Instructions Activity: as per physical therapy, increase activity as tolerated Diet: Cardiac Additional Instructions: Follow up with PCP in 1 week Go to the ER if black stools, blood in the stools or any other concern take your medications as prescribed, take antibiotics for another 5 days Talk to your pcp regarding a referral to pain clinc for back pain. Stop drinking alcohol, this is the reason for your cirrhosis of the liver and puts you at higher risk of Bleeding in the stomach Do not take coumadin at this time. Follow up with GI Dr Queen/ Fannie in 1 week to evaluate if safe to resume anticoagulation/ Coumadin Follow up with Dr weaver/ cardiology in 1 week to evaluate if any other alternative medication available for anticoagulation or lower dose warranted. - Follow up Plan Follow up with: Rom Cosme MD [Primary Care Provider] - 08/29/17 10:30 am Disposition: Home Health Service Prognosis: Undetermined Rehab Potential: Undetermined I certify that the patient requires SNF services: No Overall status at discharge: patient is progressing back to baseline Medical - DS: Qual - VTE Deep Vein Thrombosis/Pulmonary Embolism Present on Admission: No
== END 2017-08-21 19:11 | disposition home health service (06) | DRG 377 ==
LOC: ED 20:28 → ICU 08-18 00:08
PROVIDERS: ADMIT Internal Medicine; ATTEND Internal Medicine